=== PATIENT | male | born 1965 | race African-American/Black ===

== ENCOUNTER 2017-01-11 11:42 | Inpatient (IN) | payer OTHER ==
[2017-01-11 13:15] VITALS: BMI 33.6
--- NOTE | 2017-01-11 14:42 | HP ---
CIWA Score - CIWA Score Nausea/Vomitin Muscle Tremors: 3 Anxiety: 3 Agitation: 3 Paroxysmal Sweats: 2 Orientation: 0-Oriented Tacttile Disturbances: 2-Mild Itch/Numbness/Burn Auditory Disturbances: 2-Mild Harshness/Frighten Visual Disturbances: 0-None Headache: 2-Mild CIWA-Ar Total Score: 20 Admission ROS BHS - HPI Chief Complaint: I NEED HELP TO STOP DRINKING ALCOHOL AND COCAINE Allergies/Adverse Reactions: Allergies Allergy/AdvReac Type Severity Reaction Status Date / Time No Known Allergies Allergy Verified 01/11/17 14:21 History of Present Illness: THIS 51 YEARS OLD BLACK MALE WITH ALCOHOL AND COCAINE DEPENDENCE,SEEKING DETOX, LAST TREATMENT 11/23/15 TO 11/28/15 SEIZURE ALCOHOL RELATED LAST 10/18 DIVERTICULITIS LAST ATTACK 6 MOTHS AGO GERD INSOMNIA LONGEST PERIOD OF SOBRIETY 5 YEARS Exam Limitations: No Limitations - Ebola screening Have you traveled outside of the country in the last 21 days: No Have you been sick,other than usual withdrawal symptoms: No - Review of Systems Constitutional: Malaise, Night Sweats, Changes in sleep, Weakness EENT: reports: Nose Congestion Respiratory: reports: No Symptoms reported Cardiac: reports: No Symptoms Reported GI: reports: Nausea, Poor Appetite, Vomiting, Abdominal cramping : reports: No Symptoms Reported Musculoskeletal: reports: Back Pain, Muscle Pain Integumentary: reports: Dryness Neuro: reports: Headache, Tremors Endocrine: reports: No Symptoms Reported Hematology: reports: No Symptoms Reported Psychiatric: reports: No Sypmtoms Reported, Judgement Intact, Mood/Affect Appropiate, Orientated x3 (INSOMNIA) Patient History - Patient Medical History Hx Anemia: No Hx Asthma: No Hx Chronic Obstructive Pulmonary Disease (COPD): No Hx Cancer: No Hx Cardiac Disorders: No Hx Congestive Heart Failure: No Hx Hypertension: No Hx Hypercholesterolemia: No Hx Pacemaker: No HX Cerebrovascular Accident: No Hx Seizures: Yes (etoh related last in 10/18) Hx Dementia: No Hx Diabetes: No Hx Gastrointestinal Disorders: Yes (Hx of diverticulitis. Hx of GERD) Hx Liver Disease: No Hx Genitourinary Disorders: No Hx Sexually Transmitted Disorders: No Hx Renal Disease (ESRD): No Hx Thyroid Disease: No Hx Human Immunodeficiency Virus (HIV): No (LAST 10/18) Hx Hepatitis C: No Hx Depression: Yes Hx Suicide Attempt: No Hx Bipolar Disorder: No Hx Schizophrenia: No Other Medical History: NO SUCIDAL,NO HOMICIDAL,INSOMNIA - Patient Surgical History Past Surgical History: No Hx Neurologic Surgery: No Hx Cataract Extraction: No Hx Cardiac Surgery: No Hx Lung Surgery: No Hx Breast Surgery: No Hx Breast Biopsy: No Hx Abdominal Surgery: No Hx Appendectomy: No Hx Cholecystectomy: No Hx Genitourinary Surgery: No Hx Section: No Hx Orthopedic Surgery: No Anesthesia Reaction: No - PPD History Previous Implant?: Yes Documented Results: Negative w/o proof Implanted On Prior [facility] Admission?: No Date: 11/05/15 Results: 0 mm PPD to be Administered?: Yes - Smoking Cessation Smoking history: Current every day smoker Have you smoked in the past 12 months: Yes Aproximately how many cigarettes per day: 3 Cigars Per Day: 0 Hx Chewing Tobacco Use: No Initiated information on smoking cessation: Yes 'Breaking Loose' booklet given: 01/11/17 - Substance & Tx. History Hx Alcohol Use: Yes Hx Substance Use: Yes Substance Use Type: Alcohol, Cocaine Hx Substance Use Treatment: Yes (LAST [facility] 11/23/15 TO 11/18/15) - Substances Abused Alcohol Route: Oral Frequency: Daily Amount used: FIFTH OF VODKA Age of first use: 15 Date of Last Use: 01/08/17 Cocaine Route: Inhalation Frequency: Daily Amount used: 1 GRAM Age of first use: 18 Date of Last Use: 01/08/17 Family Disease History - Family Disease History Family Disease History: CA: Brother Admission Physical Exam BHS - Vital Signs Vital Signs: Vital Signs - 24 hr 01/11/17 13:13 Temperature 96.9 F L Pulse Rate 84 Respiratory 18 Rate Blood Pressure 116/79 - Physical General Appearance: Yes: Moderate Distress, Tremorous, Irritable, Sweating, Anxious HEENTM: Yes: Normal ENT Inspection, Normocephalic, CHRISTEL, Pharynx Normal Respiratory: Yes: Lungs Clear, Normal Breath Sounds, No Respiratory Distress Neck: Yes: Within Normal Limits, No masses,lesions,Nodules, Supple, Trachea in good position Breast: Yes: Within Normal Limits Cardiology: Yes: Within Normal Limits, Regular Rhythm, S1, S2, Tachycardia Abdominal: Yes: Within Normal Limits, Normal Bowel Sounds, Non Tender, Flat, Soft Genitourinary: Yes: Within Normal Limits Back: Yes: Muscle Spasm Musculoskeletal: Yes: Muscle Pain Extremities: Yes: Within Normal Limits, Normal Range of Motion, Tremors Neurological: Yes: wall man II-XII NML intact, Alert, Motor Strength 5/5, Normal Mood /Affect Integumentary: Yes: Dry Lymphatic: Yes: Within Normal Limits - Diagnostic (1) Alcohol dependence with uncomplicated withdrawal Current Visit: No Status: Chronic (2) Diverticulitis Current Visit: No Status: Acute Qualifiers: Diverticulitis site: large intestine Diverticulitis bleeding: without bleeding Diverticulitis complication: without perforation or abscess Qualified Code(s): K57.32 - Diverticulitis of large intestine without perforation or abscess without bleeding; K57.32 - Diverticulitis of large intestine without perforation or abscess without bleeding Comment: AUGMENTIN BID X 6 DAYS (3) Major depressive disorder Current Visit: No Status: Acute (4) Cocaine dependence Current Visit: No Status: Chronic (5) History of seizures Current Visit: No Status: Chronic Comment: NO TREATMENT (6) Nicotine dependence Current Visit: No Status: Chronic Qualifiers: Nicotine product type: cigarettes Substance use status: uncomplicated Qualified Code(s): F17.210 - Nicotine dependence, cigarettes, uncomplicated; F17.210 - Nicotine dependence, cigarettes, uncomplicated (7) Seizure disorder Current Visit: No Status: Chronic Comment: refuses to take keppra. (8) Insomnia Current Visit: Yes Status: Acute Cleared for Admission [facility] - Detox or Rehab [facility] Level of Care: Medically Managed Detox Regimen/Protocol: Librium [facility] Breath Alcohol Content Breath Alcohol Content: 0 Urine Drug Screen - Results Drug Screen Negative: No Urine Drug Screen Results: MAC-Cocaine, OPI-Opiates
[2017-01-11] MEDS ORDERED: guaiFENesin/D-METHORPHAN HB 10 ML UNIT-DOSE CUPS PO PRN (15:03)
[2017-01-11] MEDS ORDERED: P-EPHED 60MG/TRIPROLIDI 2.5MG TABLET PO PRN (15:03)
[2017-01-11] MEDS ORDERED: chlordiazePOXIDE HCL 25 MG CAPSULE PO PRN (15:03)
[2017-01-11] MEDS ORDERED: MAGNESIUM CITRATE 300 ML BOTTLE PO PRN (15:03)
[2017-01-11] MEDS ORDERED: LOPERAMIDE HCL 2 MG CAPSULE PO PRN (15:03)
[2017-01-11] MEDS ORDERED: ACETAMINOPHEN 325 MG TABLET (FP) PO PRN (15:03)
[2017-01-11] MEDS ORDERED: MENTHOL/PHENOL 1 EACH UD MM PRN (15:03)
[2017-01-11] MEDS ORDERED: hydrOXYzine PAMOATE 50 MG CAPSULE (FP) PO PRN (15:03)
[2017-01-11] MEDS ORDERED: MAGNESIUM HYDROX 2400MG/30ML ORAL SUSPENSION 30 ML CUP PO PRN (15:03)
[2017-01-11] MEDS ORDERED: IBUPROFEN 400 MG TABLET (FP) PO PRN (15:03)
[2017-01-11] MEDS ORDERED: diphenhydrAMINE HCL 50 MG CAPSULE PO PRN (15:03)
[2017-01-11] MEDS ORDERED: chlordiazePOXIDE HCL 25 MG CAPSULE PO ONE (16:45)
[2017-01-11] MEDS: chlordiazePOXIDE HCL 25 MG CAPSULE PO SCH ×2 (18:01→22:30)
[2017-01-11] MEDS ORDERED: COLLOIDAL OATMEAL 1 BAR EACH TP PRN (20:26)
[2017-01-11 22:20] LABS: URINE APPEARANCE CLEAR; URINE BILIRUBIN NEGATIVE (NEGATIVE); URINE BLOOD NEGATIVE (NEGATIVE); URINE COLOR YELLOW; URINE GLUCOSE (UA) NEGATIVE (NEGATIVE); URINE KETONE NEGATIVE (NEGATIVE); URINE NITRITE NEGATIVE (NEGATIVE); URINE PROTEIN NEGATIVE (NEGATIVE); URINE UROBILINOGEN 0.2 mg/dL (0.2-1.0)
[2017-01-11] MEDS: THIAMINE HCL 100 MG TABLET (FP) PO SCH (22:30)
[2017-01-12] MEDS: chlordiazePOXIDE HCL 25 MG CAPSULE PO SCH ×4 (05:24→23:09)
[2017-01-12 09:32] LABS: URINE LEUK ESTERASE Negative (NEGATIVE)
[2017-01-12 10:14] LABS: MCH 26.3 pg (25.7-33.7); MCHC 31.6 g/dl (32.0-35.9); MEAN CELL VOLUME 83.3 fl (80-96); MEAN PLT VOLUME 9.2 fl (7.5-11.1); PLATELET COUNT 312 K/MM3 (134-434); RDW 15.5 % (11.9-15.9); WHITE BLOOD COUNT 8.2 K/mm3 (4.0-10.0)
[2017-01-12 10:41] LABS: ALBUMIN 3.8 g/dl (3.4-5.0); ANION GAP 8 (8-16); CALCIUM 9.6 mg/dL (8.5-10.1); CO2 27 mmol/L (21-32); CREATININE 1.2 mg/dL (0.7-1.3); GLUCOSE,RANDOM 95 mg/dL (74-106); SGOT/AST 20 U/L (15-37); SGPT/ALT 26 U/L (12-78)
[2017-01-12 10:42] LABS: ALK PHOS 155 U/L (45-117); BILIRUBIN,TOTAL 0.5 mg/dL (0.2-1.0)
[2017-01-12] MEDS: PANTOPRAZOLE 40 MG TABLET (FP) PO SCH (10:42)
[2017-01-12] MEDS: PRENATAL VITAMINS W/ FOLIC ACID TABLET (FP) PO SCH (10:42)
--- NOTE | 2017-01-12 10:46 | EKG ---
Test Reason : Blood Pressure : / mmHG Vent. Rate : 069 BPM Atrial Rate : 069 BPM P-R Int : 122 ms QRS Dur : 090 ms QT Int : 384 ms P-R-T Axes : 031 046 032 degrees QTc Int : 411 ms NORMAL SINUS RHYTHM WITH SINUS ARRHYTHMIA NORMAL ECG WHEN COMPARED WITH ECG OF 23-NOV-2015 02:17, NO SIGNIFICANT CHANGE WAS FOUND Confirmed by MARCO A CHARLES, MARIAMA ([id number]) on 01/12/2017 10:45:54 AM Referred By: Ari Recinos Confirmed By:MARIAMA STRICKLAND MD
--- NOTE | 2017-01-12 13:09 | CONSULT ---
[facility] Psychiatric Consult - Data Date of interview: 01/12/17 Admission source: [facility] Identifying data: Readmission to [facility] for this 51 y/o AA male seeking detox treatment on for alcohol and cocaine dependence.Patient is single, a father of four,domiciled,unemployed and supported on [facility] benefits. Substance Abuse History: Confirmed by patient in this session. Smoking Cessation. Smoking history: Current every day smoker. Have you smoked in the past 12 months: Yes. Aproximately how many cigarettes per day: 3. Cigars Per Day: 0. Hx Chewing Tobacco Use: No. Initiated information on smoking cessation : Yes. 'Breaking Loose' booklet given: 01/11/17. - Substance & Tx. History. Hx Alcohol Use: Yes. Hx Substance Use: Yes. Substance Use Type: Alcohol, Cocaine. Hx Substance Use Treatment: Yes (LAST [facility] 11/23/15 TO 11/18/15). - Substances Abused. Alcohol. Route: Oral. Frequency: Daily. Amount used: FIFTH OF VODKA. Age of first use: 15. Date of Last Use: 01/08/17. Cocaine. Route: Inhalation. Frequency: Daily. Amount used: 1 GRAM. Age of first use: 18. Date of Last Use: 01/08/17 Medical History: Consistent with alcohol-related seizures in the past,GERD, diabetes mellitus (borderline) and hospitalization for diverticulitis (2016). Psychiatric History: No reported history of psychiatric hospitalizations.Diagnosed with MDD.Patient is under the care of Dr Montalvo, attending psychiatrist at [facility] in [facility].Prescribed trazodone 100 mg/hs + remeron 15 mg/hs.Mr Cary appears to be a good / reliable historian.Denies history of suicide attempts. Physical/Sexual Abuse/Trauma History: Patient denies. Additional Comment: Urine Drug Screen Results: MAC-Cocaine, OPI-Opiates.Noted. Mental Status Exam - Mental Status Exam Alert and Oriented to: Time, Place, Person Cognitive Function: Good Patient Appearance: Well Groomed Mood: Hopeful, Euthymic Affect: Appropriate, Normal Range Patient Behavior: Appropriate, Cooperative Speech Pattern: Clear Voice Loudness: Normal Thought Process: Intact, Goal Oriented Thought Disorder: Not Present Hallucinations: Denies Suicidal Ideation: Denies Homicidal Ideation: Denies Insight/Judgement: Poor Sleep: Poorly, Difficulty falling asleep Appetite: Good Muscle strength/Tone: Normal Gait/Station: Normal Psychiatric Findings - Problem List ([place] 1, 2,3) (1) Alcohol dependence with uncomplicated withdrawal Current Visit: Yes Status: Acute (2) Cocaine dependence Current Visit: Yes Status: Acute (3) Nicotine dependence Current Visit: Yes Status: Acute Qualifiers: Nicotine product type: cigarettes Substance use status: uncomplicated Qualified Code(s): F17.210 - Nicotine dependence, cigarettes, uncomplicated; F17.210 - Nicotine dependence, cigarettes, uncomplicated (4) Substance induced mood disorder Current Visit: Yes Status: Acute (5) Depressive disorder Current Visit: Yes Status: Chronic (6) GERD (gastroesophageal reflux disease) Current Visit: Yes Status: Chronic Qualifiers: Esophagitis presence: without esophagitis Qualified Code(s): K21.9 - Gastro-esophageal reflux disease without esophagitis; K21.9 - Gastro- esophageal reflux disease without esophagitis; K21.9 - Gastro-esophageal reflux disease without esophagitis (7) Diverticulitis Current Visit: Yes Status: Chronic Qualifiers: Diverticulitis site: large intestine Diverticulitis bleeding: without bleeding Diverticulitis complication: without perforation or abscess Qualified Code(s): K57.32 - Diverticulitis of large intestine without perforation or abscess without bleeding; K57.32 - Diverticulitis of large intestine without perforation or abscess without bleeding Comment: AUGMENTIN BID X 6 DAYS (8) History of seizures Current Visit: Yes Status: Chronic Comment: NO TREATMENT (9) Insomnia Current Visit: Yes Status: Chronic - Initial Treatment Plan Initial Treatment Plan: Psychoeducation.Previous records are reviewed.Detoxification in progress.Medications : trazodone 100 mg po hs + remeron 15 mg po hs.Side effects/benefits discussed with patient.Made aware of potential for priapism.Patient agrees to follow this careplan.Observation.
--- NOTE | 2017-01-12 13:18 | PN ---
S CIWA - CIWA Score Nausea/Vomitin Muscle Tremors: 4-Moderate,w/Arms Extend Anxiety: 3 Agitation: 3 Paroxysmal Sweats: 3 Orientation: 0-Oriented Tacttile Disturbances: 0-None Auditory Disturbances: 1-Very Mild Visual Disturbances: 2-Mild Sensitivity Headache: 0-None Present CIWA-Ar Total Score: 19 BHS Progress Note (SOAP) Subjective: Nausea, Tremors, Interrupted sleep, Sweating. Objective: PT. A & O X 3. NO ACUTE DISTRESS. 01/12/17 13:16 Vital Signs Temperature 95.7 F L 01/12/17 10:10 Pulse Rate 87 01/12/17 10:10 Respiratory Rate 20 01/12/17 10:10 Blood Pressure 125/81 01/12/17 10:10 O2 Sat by Pulse Oximetry (%) Laboratory Tests 01/11/17 01/12/17 01/12/17 19:00 06:00 06:00 WBC 8.2 RBC 5.24 Hgb 13.8 Hct 43.6 MCV 83.3 MCH 26.3 MCHC 31.6 L RDW 15.5 Plt Count 312 MPV 9.2 D Sodium 139 Potassium 4.8 Chloride 104 Carbon Dioxide 27 Anion Gap 8 BUN 13 D Creatinine 1.2 Creat Clearance w eGFR > 60 Random Glucose 95 Calcium 9.6 Total Bilirubin 0.5 D AST 20 D ALT 26 Alkaline Phosphatase 155 H D Total Protein 8.0 Albumin 3.8 Urine Color Yellow Urine Appearance Clear Urine pH 6.0 Ur Specific [place] 1.025 Urine Protein Negative Urine Glucose (UA) Negative Urine Ketones Negative Urine Blood Negative Urine Nitrite Negative Urine Bilirubin Negative Urine Urobilinogen 0.2 Ur Leukocyte Esterase Negative RPR Titer 01/12/17 06:00 WBC RBC Hgb Hct MCV MCH MCHC RDW Plt Count MPV Sodium Potassium Chloride Carbon Dioxide Anion Gap BUN Creatinine Creat Clearance w eGFR Random Glucose Calcium Total Bilirubin AST ALT Alkaline Phosphatase Total Protein Albumin Urine Color Urine Appearance Urine pH Ur Specific [place] Urine Protein Urine Glucose (UA) Urine Ketones Urine Blood Urine Nitrite Urine Bilirubin Urine Urobilinogen Ur Leukocyte Esterase RPR Titer Nonreactive LABS NOTED. Assessment: 01/12/17 13:16 WITHDRAWAL SYMPTOMS. Plan: CONTINUE DETOX. REPEAT AP ON 01/14/2017 FOR ELEVATED ADMISSION VALUE.
[2017-01-12] MEDS: MIRTAZAPINE 15 MG TABLET (FP) PO SCH (21:53)
[2017-01-12] MEDS: THIAMINE HCL 100 MG TABLET (FP) PO SCH (21:53)
[2017-01-12] MEDS: traZODone HCL 100 MG TABLET (FP) PO SCH (21:53)
[2017-01-12] MEDS: MAG HYDROX/AL HYDROX/SIMETH 30 ML UNIT-DOSE CUP PO PRN (21:54)
[2017-01-13] MEDS: chlordiazePOXIDE HCL 25 MG CAPSULE PO SCH ×3 (06:19→11:20)
[2017-01-13] MEDS: PANTOPRAZOLE 40 MG TABLET (FP) PO SCH ×2 (11:07→11:20)
[2017-01-13] MEDS: PRENATAL VITAMINS W/ FOLIC ACID TABLET (FP) PO SCH ×2 (11:07→11:21)
--- NOTE | 2017-01-13 13:10 | PN ---
S CIWA - CIWA Score Nausea/Vomitin-No Nausea/No Vomiting Muscle Tremors: 4-Moderate,w/Arms Extend Anxiety: 3 Agitation: 1-Slight > Activity Paroxysmal Sweats: 3 Orientation: 0-Oriented Tacttile Disturbances: 0-None Auditory Disturbances: 1-Very Mild Visual Disturbances: 3-Moderate Sensitivity Headache: 0-None Present CIWA-Ar Total Score: 15 BHS Progress Note (SOAP) Subjective: Sweating, Tremors, Fatigue. Objective: PT. A & O X 3. NO ACUTE DISTRESS. 01/13/17 13:08 Vital Signs Temperature 96.2 F L 01/13/17 09:54 Pulse Rate 84 01/13/17 09:54 Respiratory Rate 20 01/13/17 09:54 Blood Pressure 114/63 01/13/17 09:54 O2 Sat by Pulse Oximetry (%) Laboratory Tests 01/11/17 01/12/17 01/12/17 19:00 06:00 06:00 WBC 8.2 RBC 5.24 Hgb 13.8 Hct 43.6 MCV 83.3 MCH 26.3 MCHC 31.6 L RDW 15.5 Plt Count 312 MPV 9.2 D Sodium 139 Potassium 4.8 Chloride 104 Carbon Dioxide 27 Anion Gap 8 BUN 13 D Creatinine 1.2 Creat Clearance w eGFR > 60 Random Glucose 95 Calcium 9.6 Total Bilirubin 0.5 D AST 20 D ALT 26 Alkaline Phosphatase 155 H D Total Protein 8.0 Albumin 3.8 Urine Color Yellow Urine Appearance Clear Urine pH 6.0 Ur Specific [place] 1.025 Urine Protein Negative Urine Glucose (UA) Negative Urine Ketones Negative Urine Blood Negative Urine Nitrite Negative Urine Bilirubin Negative Urine Urobilinogen 0.2 Ur Leukocyte Esterase Negative RPR Titer 01/12/17 06:00 WBC RBC Hgb Hct MCV MCH MCHC RDW Plt Count MPV Sodium Potassium Chloride Carbon Dioxide Anion Gap BUN Creatinine Creat Clearance w eGFR Random Glucose Calcium Total Bilirubin AST ALT Alkaline Phosphatase Total Protein Albumin Urine Color Urine Appearance Urine pH Ur Specific [place] Urine Protein Urine Glucose (UA) Urine Ketones Urine Blood Urine Nitrite Urine Bilirubin Urine Urobilinogen Ur Leukocyte Esterase RPR Titer Nonreactive LABS NOTED. Assessment: 01/13/17 13:09 WITHDRAWAL SYMPTOMS. Plan: CONTINUE DETOX.
[2017-01-13] MEDS: chlordiazePOXIDE 5 MG CAPSULE PO SCH ×2 (17:34→22:45)
[2017-01-13] MEDS: MIRTAZAPINE 15 MG TABLET (FP) PO SCH (22:45)
[2017-01-13] MEDS: THIAMINE HCL 100 MG TABLET (FP) PO SCH (22:45)
[2017-01-13] MEDS: traZODone HCL 100 MG TABLET (FP) PO SCH (22:45)
[2017-01-14] MEDS: chlordiazePOXIDE 5 MG CAPSULE PO SCH ×2 (05:34→10:36)
[2017-01-14] MEDS: PRENATAL VITAMINS W/ FOLIC ACID TABLET (FP) PO SCH (10:36)
[2017-01-14] MEDS: PANTOPRAZOLE 40 MG TABLET (FP) PO SCH (10:36)
--- NOTE | 2017-01-14 12:36 | PN ---
BHS Progress Note (SOAP) Subjective: DECREASED ANXIETY,SWEATS. ALERT O X 3. NAD. PT INTERESTED TO GO TO REHAB. Objective: 01/14/17 12:35 Vital Signs Temperature 96.4 F L 01/14/17 10:21 Pulse Rate 95 H 01/14/17 10:21 Respiratory Rate 18 01/14/17 10:21 Blood Pressure 131/75 01/14/17 10:21 O2 Sat by Pulse Oximetry (%) Laboratory Last Values WBC 8.2 K/mm3 (4.0-10.0) 01/12/17 06:00 RBC 5.24 M/mm3 (4.00-5.60) 01/12/17 06:00 Hgb 13.8 GM/dL (11.7-16.9) 01/12/17 06:00 Hct 43.6 % (35.4-49) 01/12/17 06:00 MCV 83.3 fl (80-96) 01/12/17 06:00 MCH 26.3 pg (25.7-33.7) 01/12/17 06:00 MCHC 31.6 g/dl (32.0-35.9) L 01/12/17 06:00 RDW 15.5 % (11.9-15.9) 01/12/17 06:00 Plt Count 312 K/MM3 (134-434) 01/12/17 06:00 MPV 9.2 fl (7.5-11.1) D 01/12/17 06:00 Sodium 139 mmol/L (136-145) 01/12/17 06:00 Potassium 4.8 mmol/L (3.5-5.1) 01/12/17 06:00 Chloride 104 mmol/L (98-107) 01/12/17 06:00 Carbon Dioxide 27 mmol/L (21-32) 01/12/17 06:00 Anion Gap 8 (8-16) 01/12/17 06:00 BUN 13 mg/dL (7-18) D 01/12/17 06:00 Creatinine 1.2 mg/dL (0.7-1.3) 01/12/17 06:00 Creat Clearance w eGFR > 60 (>60) 01/12/17 06:00 Random Glucose 95 mg/dL (74-106) 01/12/17 06:00 Calcium 9.6 mg/dL (8.5-10.1) 01/12/17 06:00 Total Bilirubin 0.5 mg/dL (0.2-1.0) D 01/12/17 06:00 AST 20 U/L (15-37) D 01/12/17 06:00 ALT 26 U/L (12-78) 01/12/17 06:00 Alkaline Phosphatase 141 U/L (45-117) H 01/14/17 07:00 Total Protein 8.0 g/dl (6.4-8.2) 01/12/17 06:00 Albumin 3.8 g/dl (3.4-5.0) 01/12/17 06:00 Urine Color Yellow 01/11/17 19:00 Urine Appearance Clear 01/11/17 19:00 Urine pH 6.0 (5.0-8.0) 01/11/17 19:00 Ur Specific [place] 1.025 (1.005-1.025) 01/11/17 19:00 Urine Protein Negative (NEGATIVE) 01/11/17 19:00 Urine Glucose (UA) Negative (NEGATIVE) 01/11/17 19:00 Urine Ketones Negative (NEGATIVE) 01/11/17 19:00 Urine Blood Negative (NEGATIVE) 01/11/17 19:00 Urine Nitrite Negative (NEGATIVE) 01/11/17 19:00 Urine Bilirubin Negative (NEGATIVE) 01/11/17 19:00 Urine Urobilinogen 0.2 mg/dL (0.2-1.0) 01/11/17 19:00 Ur Leukocyte Esterase Negative (NEGATIVE) 01/11/17 19:00 RPR Titer Nonreactive (NONREACTIVE) 01/12/17 06:00 Assessment: 01/14/17 12:36 NAD Plan: CONTINUE DETOX PT MAY GO TO REHAB TODAY IF BED AVAILABLE.
[2017-01-14] MEDS: chlordiazePOXIDE HCL 10 MG CAPSULE PO SCH ×2 (17:12→22:47)
[2017-01-14] MEDS: traZODone HCL 100 MG TABLET (FP) PO SCH (22:46)
[2017-01-14] MEDS: THIAMINE HCL 100 MG TABLET (FP) PO SCH (22:47)
[2017-01-14] MEDS: MIRTAZAPINE 15 MG TABLET (FP) PO SCH (22:47)
[2017-01-15] MEDS: MAG HYDROX/AL HYDROX/SIMETH 30 ML UNIT-DOSE CUP PO PRN (01:34)
[2017-01-15] MEDS: chlordiazePOXIDE HCL 10 MG CAPSULE PO SCH ×2 (06:21→10:53)
[2017-01-15 07:08] VITALS: BP 145/81; PULSE 82; TEMP 96.1
[2017-01-15] MEDS: PRENATAL VITAMINS W/ FOLIC ACID TABLET (FP) PO SCH (10:53)
[2017-01-15] MEDS: PANTOPRAZOLE 40 MG TABLET (FP) PO SCH (10:53)
--- NOTE | 2017-01-15 15:20 | DS ---
[facility] Detox Discharge Summary Admission Date: 01/11/17 Discharge Date: 01/15/17 - History Present History: Alcohol Dependence, Cocaine Dependence Additional Comments: PATIENT GOING TO [facility] FOR AFTERCARE. PATIENT WAS DISCHARGED FROM DETOX UNIT IN STABLE MEDICAL CONDITION. Pertinent Past History: History of Seizures, Insomnia, Depression, Nicotine Dependence, GERD, Diverticulitis. - Physical Exam Results Vital Signs: Vital Signs Temperature 96.1 F L 01/15/17 07:08 Pulse Rate 82 01/15/17 07:08 Respiratory Rate 18 01/15/17 07:08 Blood Pressure 145/81 01/15/17 07:08 O2 Sat by Pulse Oximetry (%) Pertinent Admission Physical Exam Findings: WITHDRAWAL SYMPTOMS. Laboratory Tests 01/11/17 01/12/17 01/12/17 19:00 06:00 06:00 WBC 8.2 RBC 5.24 Hgb 13.8 Hct 43.6 MCV 83.3 MCH 26.3 MCHC 31.6 L RDW 15.5 Plt Count 312 MPV 9.2 D Sodium 139 Potassium 4.8 Chloride 104 Carbon Dioxide 27 Anion Gap 8 BUN 13 D Creatinine 1.2 Creat Clearance w eGFR > 60 Random Glucose 95 Calcium 9.6 Total Bilirubin 0.5 D AST 20 D ALT 26 Alkaline Phosphatase 155 H D Total Protein 8.0 Albumin 3.8 Urine Color Yellow Urine Appearance Clear Urine pH 6.0 Ur Specific [place] 1.025 Urine Protein Negative Urine Glucose (UA) Negative Urine Ketones Negative Urine Blood Negative Urine Nitrite Negative Urine Bilirubin Negative Urine Urobilinogen 0.2 Ur Leukocyte Esterase Negative RPR Titer 01/12/17 01/14/17 06:00 07:00 WBC RBC Hgb Hct MCV MCH MCHC RDW Plt Count MPV Sodium Potassium Chloride Carbon Dioxide Anion Gap BUN Creatinine Creat Clearance w eGFR Random Glucose Calcium Total Bilirubin AST ALT Alkaline Phosphatase 141 H Total Protein Albumin Urine Color Urine Appearance Urine pH Ur Specific [place] Urine Protein Urine Glucose (UA) Urine Ketones Urine Blood Urine Nitrite Urine Bilirubin Urine Urobilinogen Ur Leukocyte Esterase RPR Titer Nonreactive LABS NOTED. - Treatment Hospital Course: Detox Protocol Followed, Detoxed Safely, Responded well, Discharged Condition Good, Rehab Referral Accepted Patient has Accepted a Rehab Referral to: [facility]. - Medication Discharge Medications: Ambulatory Orders Lansoprazole [Prevacid -] 30 mg PO DAILY #30 cap.sr.24h 12/04/15 Trazodone HCl [Desyrel -] 100 mg PO HS #30 tablet 08/03/16 Mirtazapine [Remeron -] 15 mg PO HS #30 tablet 01/12/17 Trazodone HCl 100 mg PO HS #30 tablet 01/12/17 Mirtazapine [Remeron -] 15 mg PO HS 01/15/17 - Diagnosis (1) Alcohol dependence with uncomplicated withdrawal Status: Acute (2) Cocaine dependence Status: Acute (3) Major depressive disorder Status: Chronic Qualifiers: Major depression recurrence: recurrent Active/Remission status: remission status unspecified Qualified Code(s): F33.9 - Major depressive disorder, recurrent, unspecified; F33.9 - Major depressive disorder, recurrent, unspecified; F33.9 - Major depressive disorder, recurrent, unspecified; F33.9 - Major depressive disorder, recurrent, unspecified (4) Nicotine dependence Status: Chronic Qualifiers: Nicotine product type: cigarettes Substance use status: in withdrawal Qualified Code(s): F17.213 - Nicotine dependence, cigarettes, with withdrawal; F17.213 - Nicotine dependence, cigarettes, with withdrawal (5) Substance induced mood disorder Status: Acute (6) Depressive disorder Status: Chronic (7) Diverticulitis Status: Chronic Qualifiers: Diverticulitis site: large intestine Diverticulitis bleeding: without bleeding Diverticulitis complication: without perforation or abscess Qualified Code(s): K57.32 - Diverticulitis of large intestine without perforation or abscess without bleeding; K57.32 - Diverticulitis of large intestine without perforation or abscess without bleeding (8) GERD (gastroesophageal reflux disease) Status: Chronic Qualifiers: Esophagitis presence: without esophagitis Qualified Code(s): K21.9 - Gastro-esophageal reflux disease without esophagitis; K21.9 - Gastro- esophageal reflux disease without esophagitis; K21.9 - Gastro-esophageal reflux disease without esophagitis (9) History of seizures Status: Chronic (10) Insomnia Status: Chronic Qualifiers: Insomnia type: unspecified Qualified Code(s): G47.00 - Insomnia, unspecified; G47.00 - Insomnia, unspecified (11) Seizure disorder Status: Chronic - AMA Did Patient Leave Against Medical Advice: No
== END 2017-01-15 11:05 | disposition other institution (70) | DRG 774 ==
LOC: YASAS 11:42 → Y3N 16:23
PROVIDERS: ADMIT Internal Medicine; ATTEND Internal Medicine
PROC: HZ2ZZZZ Detoxification Services for Substance Abuse Treatment (ICD-10-PCS; principal; 2017-01-11)
DX: F10.230 Alcohol dependence with withdrawal, uncomplicated (principal); F14.20 Cocaine dependence, uncomplicated; F17.213 Nicotine dependence, cigarettes, with withdrawal; F33.9 Major depressive disorder, recurrent, unspecified; F19.24 Other psychoactive substance dependence with psychoactive substance-induced mood disorder; R00.0 Tachycardia, unspecified; R73.03 Prediabetes; K21.9 Gastro-esophageal reflux disease without esophagitis; K57.32 Diverticulitis of large intestine without perforation or abscess without bleeding; G47.00 Insomnia, unspecified; Z86.69 Personal history of other diseases of the nervous system and sense organs
CPT/HCPCS: 36415; 80053; 81003; 84075; 85027; 86593; 93005; 93010

== ENCOUNTER 2017-01-15 11:14 | Inpatient (IN) | payer OTHER ==
--- NOTE | 2017-01-15 11:44 | HP ---
[facility] Rehab Assess/Revision - Admission History Admitted to Rehab from: [facility] Date of Admission to Rehab: 01/15/2017 - Vital signs Vital Signs: NOTED; STABLE. - Findings Detox History & Physical reviewed: Yes Concur with findings: Yes Comments/Additional Findings: PATIENT'S MEDICAL / MEDICATION HISTORY REVIEWED PRIOR TO DISCAHRGE FROM DETOX UNIT. PATIENT WAS DISCHARGED FROM DETOX UNIT IN STABLE MEDICAL CONDITION TO BE TAKEN TO REHAB UNIT. Inpatient Rehab Admission - Initial Determination Are CD services needed?: Yes Free of communicable disease: Yes Not in need of hospitalization: Yes - Rehab Admission Criteria Previous failed treatment: Yes Comorbidities: Yes Patient is meeting Inpatient Rehab admission criteria:: Yes
[2017-01-15] MEDS ORDERED: LOPERAMIDE HCL 2 MG CAPSULE PO PRN (11:50)
[2017-01-15] MEDS ORDERED: guaiFENesin/D-METHORPHAN HB 10 ML UNIT-DOSE CUPS PO PRN (11:50)
[2017-01-15] MEDS ORDERED: MAGNESIUM CITRATE 300 ML BOTTLE PO PRN (11:50)
[2017-01-15] MEDS ORDERED: MAGNESIUM HYDROX 2400MG/30ML ORAL SUSPENSION 30 ML CUP PO PRN (11:50)
[2017-01-15] MEDS ORDERED: IBUPROFEN 400 MG TABLET (FP) PO PRN (11:50)
[2017-01-15] MEDS ORDERED: diphenhydrAMINE HCL 50 MG CAPSULE PO PRN (11:50)
[2017-01-15] MEDS ORDERED: hydrOXYzine PAMOATE 50 MG CAPSULE (FP) PO PRN (11:50)
[2017-01-15] MEDS ORDERED: ACETAMINOPHEN 325 MG TABLET (FP) PO PRN (11:50)
[2017-01-15] MEDS ORDERED: MAG HYDROX/AL HYDROX/SIMETH 30 ML UNIT-DOSE CUP PO PRN (11:50)
[2017-01-15] MEDS ORDERED: P-EPHED 60MG/TRIPROLIDI 2.5MG TABLET PO PRN (11:50)
[2017-01-15] MEDS ORDERED: MENTHOL/PHENOL 1 EACH UD MM PRN (11:50)
[2017-01-15] MEDS ORDERED: NICOTINE POLACRILEX 2 MG GUM BUC PRN (11:50)
[2017-01-15 13:29] VITALS: BMI 31.8
--- NOTE | 2017-01-15 18:35 | PN ---
[facility] Progress Note Note: Psychiatry Attending's neon glass blower note : Orders entered for trazodone 100 mg po hs + remeron 15 mg po hs. Mr Cary is already known to me from the detox unit. Transferred today to [address] [place] [address]
[2017-01-15] MEDS: THIAMINE HCL 100 MG TABLET (FP) PO SCH (22:02)
[2017-01-15] MEDS: traZODone HCL 50 MG TABLET (FP) PO SCH (22:03)
[2017-01-15] MEDS: MIRTAZAPINE 15 MG TABLET (FP) PO SCH (22:03)
[2017-01-16] MEDS: NICOTINE 14 MG/24 HOURS TOPICAL PATCH TD SCH (10:12)
[2017-01-16] MEDS: PANTOPRAZOLE 40 MG TABLET (FP) PO SCH (10:12)
[2017-01-16] MEDS: PRENATAL VITAMINS W/ FOLIC ACID TABLET (FP) PO SCH (10:12)
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
[2017-01-16] MEDS: THIAMINE HCL 100 MG TABLET (FP) PO SCH (21:25)
[2017-01-16] MEDS: traZODone HCL 50 MG TABLET (FP) PO SCH (21:25)
[2017-01-16] MEDS: MIRTAZAPINE 15 MG TABLET (FP) PO SCH (21:25)
[2017-01-17] MEDS: PANTOPRAZOLE 40 MG TABLET (FP) PO SCH (09:52)
[2017-01-17] MEDS: NICOTINE 14 MG/24 HOURS TOPICAL PATCH TD SCH (09:52)
[2017-01-17] MEDS: PRENATAL VITAMINS W/ FOLIC ACID TABLET (FP) PO SCH (09:52)
[2017-01-17] MEDS: TOLNAFTATE 1% CREAM 15 GM TUBE TP SCH ×2 (15:20→21:17)
[2017-01-17] MEDS: traZODone HCL 50 MG TABLET (FP) PO SCH (21:17)
[2017-01-17] MEDS: THIAMINE HCL 100 MG TABLET (FP) PO SCH (21:17)
[2017-01-17] MEDS: MIRTAZAPINE 15 MG TABLET (FP) PO SCH (21:18)
[2017-01-18] MEDS: PRENATAL VITAMINS W/ FOLIC ACID TABLET (FP) PO SCH (10:18)
[2017-01-18] MEDS: PANTOPRAZOLE 40 MG TABLET (FP) PO SCH (10:18)
[2017-01-18] MEDS: NICOTINE 14 MG/24 HOURS TOPICAL PATCH TD SCH (10:18)
[2017-01-18] MEDS: COLLOIDAL OATMEAL 1 BAR EACH TP PRN (10:19)
[2017-01-18] MEDS: TOLNAFTATE 1% CREAM 15 GM TUBE TP SCH ×2 (10:19→23:02)
[2017-01-18] MEDS: traZODone HCL 50 MG TABLET (FP) PO SCH (21:27)
[2017-01-18] MEDS: MIRTAZAPINE 15 MG TABLET (FP) PO SCH (21:27)
[2017-01-18] MEDS: THIAMINE HCL 100 MG TABLET (FP) PO SCH (21:27)
[2017-01-19] MEDS: PANTOPRAZOLE 40 MG TABLET (FP) PO SCH (10:34)
[2017-01-19] MEDS: PRENATAL VITAMINS W/ FOLIC ACID TABLET (FP) PO SCH (10:34)
[2017-01-19] MEDS: NICOTINE 14 MG/24 HOURS TOPICAL PATCH TD SCH (10:34)
[2017-01-19] MEDS: TOLNAFTATE 1% CREAM 15 GM TUBE TP SCH ×2 (10:35→21:23)
[2017-01-19] MEDS: traZODone HCL 50 MG TABLET (FP) PO SCH (21:22)
[2017-01-19] MEDS: THIAMINE HCL 100 MG TABLET (FP) PO SCH (21:22)
[2017-01-19] MEDS: MIRTAZAPINE 15 MG TABLET (FP) PO SCH (21:23)
[2017-01-20] MEDS: PANTOPRAZOLE 40 MG TABLET (FP) PO SCH (10:13)
[2017-01-20] MEDS: NICOTINE 14 MG/24 HOURS TOPICAL PATCH TD SCH (10:13)
[2017-01-20] MEDS: PRENATAL VITAMINS W/ FOLIC ACID TABLET (FP) PO SCH (10:13)
[2017-01-20] MEDS: TOLNAFTATE 1% CREAM 15 GM TUBE TP SCH ×2 (10:13→21:29)
[2017-01-20] MEDS: COLLOIDAL OATMEAL 1 BAR EACH TP PRN (10:15)
[2017-01-20] MEDS: traZODone HCL 50 MG TABLET (FP) PO SCH (21:28)
[2017-01-20] MEDS: MIRTAZAPINE 15 MG TABLET (FP) PO SCH (21:29)
[2017-01-20] MEDS: THIAMINE HCL 100 MG TABLET (FP) PO SCH (21:29)
[2017-01-21] MEDS: PRENATAL VITAMINS W/ FOLIC ACID TABLET (FP) PO SCH (10:33)
[2017-01-21] MEDS: PANTOPRAZOLE 40 MG TABLET (FP) PO SCH (10:33)
[2017-01-21] MEDS: NICOTINE 14 MG/24 HOURS TOPICAL PATCH TD SCH (10:34)
[2017-01-21] MEDS: TOLNAFTATE 1% CREAM 15 GM TUBE TP SCH ×2 (10:34→21:16)
[2017-01-21] MEDS: MIRTAZAPINE 15 MG TABLET (FP) PO SCH (21:16)
[2017-01-21] MEDS: traZODone HCL 50 MG TABLET (FP) PO SCH (21:16)
[2017-01-21] MEDS: THIAMINE HCL 100 MG TABLET (FP) PO SCH (21:16)
[2017-01-22] MEDS: PANTOPRAZOLE 40 MG TABLET (FP) PO SCH (10:01)
[2017-01-22] MEDS: TOLNAFTATE 1% CREAM 15 GM TUBE TP SCH ×2 (10:01→22:14)
[2017-01-22] MEDS: PRENATAL VITAMINS W/ FOLIC ACID TABLET (FP) PO SCH (10:01)
[2017-01-22] MEDS: NICOTINE 14 MG/24 HOURS TOPICAL PATCH TD SCH (10:01)
[2017-01-22] MEDS: THIAMINE HCL 100 MG TABLET (FP) PO SCH (22:14)
[2017-01-22] MEDS: MIRTAZAPINE 15 MG TABLET (FP) PO SCH (22:14)
[2017-01-22] MEDS: traZODone HCL 50 MG TABLET (FP) PO SCH (22:14)
[2017-01-23] MEDS: PRENATAL VITAMINS W/ FOLIC ACID TABLET (FP) PO SCH (09:55)
[2017-01-23] MEDS: NICOTINE 14 MG/24 HOURS TOPICAL PATCH TD SCH (09:55)
[2017-01-23] MEDS: PANTOPRAZOLE 40 MG TABLET (FP) PO SCH (09:55)
[2017-01-23] MEDS: TOLNAFTATE 1% CREAM 15 GM TUBE TP SCH ×2 (09:55→22:10)
[2017-01-23] MEDS: traZODone HCL 50 MG TABLET (FP) PO SCH (22:09)
[2017-01-23] MEDS: MIRTAZAPINE 15 MG TABLET (FP) PO SCH (22:09)
[2017-01-23] MEDS: THIAMINE HCL 100 MG TABLET (FP) PO SCH (22:10)
[2017-01-24] MEDS: PANTOPRAZOLE 40 MG TABLET (FP) PO SCH (10:25)
[2017-01-24] MEDS: PRENATAL VITAMINS W/ FOLIC ACID TABLET (FP) PO SCH (10:25)
[2017-01-24] MEDS: NICOTINE 14 MG/24 HOURS TOPICAL PATCH TD SCH (10:26)
[2017-01-24] MEDS: TOLNAFTATE 1% CREAM 15 GM TUBE TP SCH ×2 (10:26→21:40)
[2017-01-24] MEDS: COLLOIDAL OATMEAL 1 BAR EACH TP PRN (10:27)
[2017-01-24] MEDS: THIAMINE HCL 100 MG TABLET (FP) PO SCH (21:39)
[2017-01-24] MEDS: traZODone HCL 50 MG TABLET (FP) PO SCH (21:39)
[2017-01-24] MEDS: MIRTAZAPINE 15 MG TABLET (FP) PO SCH (21:40)
[2017-01-25] MEDS: PRENATAL VITAMINS W/ FOLIC ACID TABLET (FP) PO SCH (10:37)
[2017-01-25] MEDS: TOLNAFTATE 1% CREAM 15 GM TUBE TP SCH ×2 (10:37→21:21)
[2017-01-25] MEDS: NICOTINE 14 MG/24 HOURS TOPICAL PATCH TD SCH (10:37)
[2017-01-25] MEDS: PANTOPRAZOLE 40 MG TABLET (FP) PO SCH (10:37)
[2017-01-25] MEDS: THIAMINE HCL 100 MG TABLET (FP) PO SCH (21:20)
[2017-01-25] MEDS: MIRTAZAPINE 15 MG TABLET (FP) PO SCH (21:20)
[2017-01-25] MEDS: traZODone HCL 50 MG TABLET (FP) PO SCH (21:20)
[2017-01-26] MEDS: PRENATAL VITAMINS W/ FOLIC ACID TABLET (FP) PO SCH (10:28)
[2017-01-26] MEDS: NICOTINE 14 MG/24 HOURS TOPICAL PATCH TD SCH (10:28)
[2017-01-26] MEDS: PANTOPRAZOLE 40 MG TABLET (FP) PO SCH (10:28)
[2017-01-26] MEDS: TOLNAFTATE 1% CREAM 15 GM TUBE TP SCH ×2 (10:29→21:26)
[2017-01-26] MEDS: THIAMINE HCL 100 MG TABLET (FP) PO SCH (21:25)
[2017-01-26] MEDS: traZODone HCL 50 MG TABLET (FP) PO SCH (21:25)
[2017-01-26] MEDS: MIRTAZAPINE 15 MG TABLET (FP) PO SCH (21:26)
[2017-01-27] MEDS: NICOTINE 14 MG/24 HOURS TOPICAL PATCH TD SCH (10:22)
[2017-01-27] MEDS: PRENATAL VITAMINS W/ FOLIC ACID TABLET (FP) PO SCH (10:22)
[2017-01-27] MEDS: PANTOPRAZOLE 40 MG TABLET (FP) PO SCH (10:22)
[2017-01-27] MEDS: TOLNAFTATE 1% CREAM 15 GM TUBE TP SCH ×2 (10:22→21:57)
[2017-01-27] MEDS: COLLOIDAL OATMEAL 1 BAR EACH TP PRN (10:24)
--- NOTE | 2017-01-27 10:59 | PN ---
Psychiatric Progress Note Vital Signs: Vital Signs Period Temp Pulse Resp BP Sys/Yañez Pulse Ox Last 24 Hr 98 F 59 18-18 115/51 Date of Session: 01/27/17 Chief Complaint:: Discharge Note Current Medications: Active Medications Generic Name Dose Route Start Last Admin Trade Name Freq PRN Reason Stop Dose Admin Acetaminophen 650 mg 01/15/17 11:50 Tylenol - PO Q4H PRN FEVER OR PAIN Al Hydroxide/Mg Hydroxide 30 ml 01/15/17 11:50 01/19/17 01:26 Mylanta Oral Suspension - PO 30 ml Q6H PRN Administration DYSPEPSIA Colloidal Oatmeal 1 applic 01/15/17 11:52 01/27/17 10:24 Aveeno Soap - TP 1 applic DAILY PRN Administration HYGEINE Diphenhydramine HCl 50 mg 01/15/17 11:50 Benadryl - PO HSMR1 PRN FOR ITCHING Eucalyptus/Menthol/Phenol/Sorbitol 1 each 01/15/17 11:50 Cepastat Lozenge - MM Q4H PRN SORE THROAT Guaifenesin 10 ml 01/15/17 11:50 Robitussin Dm - PO Q6H PRN COUGH Hydroxyzine Pamoate 50 mg 01/15/17 11:50 Vistaril - PO Q4H PRN AGITATION Ibuprofen 400 mg 01/15/17 11:50 Motrin - PO Q6H PRN PAIN Loperamide HCl 4 mg 01/15/17 11:50 Imodium - PO Q6H PRN DIARRHEA Magnesium Hydroxide 30 ml 01/15/17 11:50 Milk Of Magnesia - PO DAILY PRN CONSTIPATION Mirtazapine 15 mg 01/15/17 22:00 01/26/17 21:26 Remeron - PO 15 mg HS TRUONG Administration Nicotine 14 mg 01/16/17 10:00 01/27/17 10:22 Nicoderm Patch - TD Not Given DAILY TRUONG Nicotine Polacrilex 2 mg 01/15/17 11:50 Nicorette Gum - BUC Q2H PRN NICOTINE REPLACEMENT RX Pantoprazole Sodium 40 mg 01/16/17 10:00 01/27/17 10:22 Protonix - PO 40 mg DAILY TRUONG Administration Multivit/Folic Acid/Iron 1 tab 01/16/17 10:00 01/27/17 10:22 Vitamins (Sjr) - PO 1 tab DAILY TRUONG Administration Pseudoephedrine/Triprolidine 1 combo 01/15/17 11:50 Actifed - PO TID PRN NASAL CONGESTION Thiamine HCl 100 mg 01/15/17 22:00 01/26/17 21:25 Vitamin B1 - PO 100 mg HS TRUONG Administration Tolnaftate 1 applic 01/17/17 14:05 01/27/17 10:22 Tinactin 1% Cream - TP Not Given BID TRUONG Trazodone HCl 100 mg 01/15/17 22:00 01/26/17 21:25 Desyrel - PO 100 mg HS TRUONG Administration Psychiatric Treatment Plan - Problem List (1) Alcohol dependence Current Visit: No (2) Cocaine dependence Current Visit: No (3) Nicotine dependence Current Visit: No Qualifiers: Nicotine product type: cigarettes Substance use status: in withdrawal Qualified Code(s): F17.213 - Nicotine dependence, cigarettes, with withdrawal; F17.213 - Nicotine dependence, cigarettes, with withdrawal (4) PTSD (post-traumatic stress disorder) Current Visit: Yes (5) Substance-induced sleep disorder Current Visit: Yes (6) Diverticulosis of colon Current Visit: No Qualifiers: Diverticulosis bleeding: diverticulosis without bleeding Qualified Code(s): K57.30 - Diverticulosis of large intestine without perforation or abscess without bleeding; K57.30 - Diverticulosis of large intestine without perforation or abscess without bleeding Comment: FOLLOW UP WITH DOCTOR PEGGY IN TWO WEEKS (7) History of seizures Current Visit: No Comment: NO TREATMENT (8) Seizure disorder Current Visit: No Comment: refuses to take keppra.
--- NOTE | 2017-01-27 11:11 | PN ---
Psychiatric Progress Note Vital Signs: Vital Signs Period Temp Pulse Resp BP Sys/Yañez Pulse Ox Last 24 Hr 98 F 59 18-18 115/51 Date of Session: 01/27/17 Chief Complaint:: Discharge Note HPI: Patient addressing Alcohol and Cocaine Dependence comorbid with Nicotine Dependence, Postraumatic Stress Disorder and Substance-Induced Sleep Disorder Current Medications: Active Medications Generic Name Dose Route Start Last Admin Trade Name Freq PRN Reason Stop Dose Admin Acetaminophen 650 mg 01/15/17 11:50 Tylenol - PO Q4H PRN FEVER OR PAIN Al Hydroxide/Mg Hydroxide 30 ml 01/15/17 11:50 01/19/17 01:26 Mylanta Oral Suspension - PO 30 ml Q6H PRN Administration DYSPEPSIA Colloidal Oatmeal 1 applic 01/15/17 11:52 01/27/17 10:24 Aveeno Soap - TP 1 applic DAILY PRN Administration HYGEINE Diphenhydramine HCl 50 mg 01/15/17 11:50 Benadryl - PO HSMR1 PRN FOR ITCHING Eucalyptus/Menthol/Phenol/Sorbitol 1 each 01/15/17 11:50 Cepastat Lozenge - MM Q4H PRN SORE THROAT Guaifenesin 10 ml 01/15/17 11:50 Robitussin Dm - PO Q6H PRN COUGH Hydroxyzine Pamoate 50 mg 01/15/17 11:50 Vistaril - PO Q4H PRN AGITATION Ibuprofen 400 mg 01/15/17 11:50 Motrin - PO Q6H PRN PAIN Loperamide HCl 4 mg 01/15/17 11:50 Imodium - PO Q6H PRN DIARRHEA Magnesium Hydroxide 30 ml 01/15/17 11:50 Milk Of Magnesia - PO DAILY PRN CONSTIPATION Mirtazapine 15 mg 01/15/17 22:00 01/26/17 21:26 Remeron - PO 15 mg HS TRUONG Administration Nicotine 14 mg 01/16/17 10:00 01/27/17 10:22 Nicoderm Patch - TD Not Given DAILY TRUONG Nicotine Polacrilex 2 mg 01/15/17 11:50 Nicorette Gum - BUC Q2H PRN NICOTINE REPLACEMENT RX Pantoprazole Sodium 40 mg 01/16/17 10:00 01/27/17 10:22 Protonix - PO 40 mg DAILY TRUONG Administration Multivit/Folic Acid/Iron 1 tab 01/16/17 10:00 01/27/17 10:22 Vitamins (Sjr) - PO 1 tab DAILY TRUONG Administration Pseudoephedrine/Triprolidine 1 combo 01/15/17 11:50 Actifed - PO TID PRN NASAL CONGESTION Thiamine HCl 100 mg 01/15/17 22:00 01/26/17 21:25 Vitamin B1 - PO 100 mg HS TRUONG Administration Tolnaftate 1 applic 01/17/17 14:05 01/27/17 10:22 Tinactin 1% Cream - TP Not Given BID TRUONG Trazodone HCl 100 mg 01/15/17 22:00 01/26/17 21:25 Desyrel - PO 100 mg HS TRUONG Administration Current Side Effect: No Lab tests ordered: Yes Lab tests reviewed: Yes Provider note:: Patient will complete this program on 01/28/17. He has met his treatment goals and will continue to address his issues in outpatient treatment at [facility]. 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 He responded well to Trazadone 100 mg po HS for insomnia. Scripts for 30 days supply of medication will be electronically transmitted to [facility] at [address] [place] [address]. He is stable for discharge on 01/28/17 Total face to face time:: 35 Mental Status Exam - Mental Status Exam Alert and Oriented to: Time, Place, Person Cognitive Function: Fair Patient Appearance: Well Groomed Mood: Hopeful, Euthymic Affect: Appropriate Patient Behavior: Cooperative Speech Pattern: Clear Voice Loudness: Normal Thought Process: Intact, Goal Oriented Thought Disorder: Not Present Hallucinations: Denies Suicidal Ideation: Denies Homicidal Ideation: Denies Insight/Judgement: Fair Sleep: Fair Appetite: Good Muscle strength/Tone: Normal Gait/Station: Normal Psychiatric Treatment Plan - Problem List (1) Alcohol dependence Current Visit: No (2) Cocaine dependence Current Visit: No (3) Nicotine dependence Current Visit: No Qualifiers: Nicotine product type: cigarettes Substance use status: in withdrawal Qualified Code(s): F17.213 - Nicotine dependence, cigarettes, with withdrawal; F17.213 - Nicotine dependence, cigarettes, with withdrawal (4) PTSD (post-traumatic stress disorder) Current Visit: Yes (5) Substance-induced sleep disorder Current Visit: Yes (6) Diverticulosis of colon Current Visit: No Qualifiers: Diverticulosis bleeding: diverticulosis without bleeding Qualified Code(s): K57.30 - Diverticulosis of large intestine without perforation or abscess without bleeding; K57.30 - Diverticulosis of large intestine without perforation or abscess without bleeding Comment: FOLLOW UP WITH DOCTOR PEGGY IN TWO WEEKS (7) History of seizures Current Visit: No Comment: NO TREATMENT (8) Seizure disorder Current Visit: No Comment: refuses to take keppra. Initial treatment plan: Patient will be discharged tomorrow and referred to [facility] for outpatient treatment
[2017-01-27] MEDS: MIRTAZAPINE 15 MG TABLET (FP) PO SCH (21:56)
[2017-01-27] MEDS: traZODone HCL 50 MG TABLET (FP) PO SCH (21:56)
[2017-01-27] MEDS: THIAMINE HCL 100 MG TABLET (FP) PO SCH (21:57)
[2017-01-28 07:21] VITALS: BP 133/76; PULSE 65; TEMP 97.6
[2017-01-28] MEDS: TOLNAFTATE 1% CREAM 15 GM TUBE TP SCH (09:11)
[2017-01-28] MEDS: NICOTINE 14 MG/24 HOURS TOPICAL PATCH TD SCH (09:11)
[2017-01-28] MEDS: PRENATAL VITAMINS W/ FOLIC ACID TABLET (FP) PO SCH (09:11)
[2017-01-28] MEDS: PANTOPRAZOLE 40 MG TABLET (FP) PO SCH (09:11)
== END 2017-01-28 09:10 | disposition home or self-care (01) | DRG 772 ==
LOC: YASAS 11:14 → Y3W 12:53
PROVIDERS: ADMIT Psychiatry & Neurology Psychiatry; ATTEND Psychiatry & Neurology Psychiatry
PROC: HZ42ZZZ Group Counseling for Substance Abuse Treatment, Cognitive-Behavioral (ICD-10-PCS; principal; 2017-01-15)
DX: F10.20 Alcohol dependence, uncomplicated (principal); F14.20 Cocaine dependence, uncomplicated; F17.213 Nicotine dependence, cigarettes, with withdrawal; F43.10 Post-traumatic stress disorder, unspecified; F19.282 Other psychoactive substance dependence with psychoactive substance-induced sleep disorder; K57.30 Diverticulosis of large intestine without perforation or abscess without bleeding; Z86.69 Personal history of other diseases of the nervous system and sense organs

== ENCOUNTER 2017-03-22 17:54 | Inpatient (IN) | payer OTHER ==
[2017-03-22 20:37] VITALS: BMI 30.4
--- NOTE | 2017-03-22 21:12 | HP ---
COWS - Scale Resting Pulse: 1= CT 81-100 Sweatin=Flushed/Facial Moisture Restless Observation: 1= Difficult to Sit Still Pupil Size: 1= Pupils >than Normal Bone or Joint Aches: 4=Acute Joint/Muscle Pain Runny Nose/ Eye Tearin= Runny Nose/Eyes GI Upset > 30mins: 2= Nausea/Diarrhea Tremor Observation: 2= Slight Tremor Visible Yawning Observation: 0= None Anxiety or Irritability: 4=Extreme Anxiety Goose Flesh Skin: 0=Smooth Skin COWS Score: 19 CIWA Score - CIWA Score Nausea/Vomitin Muscle Tremors: 4-Moderate,w/Arms Extend Anxiety: 5 Agitation: 1-Slight > Activity Paroxysmal Sweats: 3 Orientation: 0-Oriented Tacttile Disturbances: 0-None Auditory Disturbances: 0-None Visual Disturbances: 0-None Headache: 0-None Present CIWA-Ar Total Score: 16 Admission [facility] - HPI Chief Complaint: Alcohol, marijuana and cocaine dependence Allergies/Adverse Reactions: Allergies Allergy/AdvReac Type Severity Reaction Status Date / Time tomato Allergy Mild Verified 03/22/17 22:36 No Known Drug Allergies Allergy Verified 03/22/17 22:37 red meat Allergy Mild Uncoded 03/22/17 22:36 History of Present Illness: 51 years old male with a long history of alcohol,marijuana and cocaine dependence is admitted to detox. Patient has been in previous detox and reports 5 years of sobriety. He has medical history of seizure disorder, diverticulitis , GERD, anxiety, insomnia, depression and was recently diagnosed with colon cancer. He denies suicidal ideation at this time. Exam Limitations: No Limitations - Ebola screening Have you traveled outside of the country in the last 21 days: No (N) Have you had contact with anyone from an Ebola affected area: No Have you been sick,other than usual withdrawal symptoms: No Do you have a fever: No - Review of Systems Constitutional: Loss of Appetite, Malaise, Night Sweats, Changes in sleep, Weakness EENT: reports: Nose Congestion, Sinus Pressure, Other (use readin glasses) Respiratory: reports: Productive cough (whitish phlegm) Cardiac: reports: No Symptoms Reported GI: reports: Poor Appetite, Poor Fluid Intake, Abdominal cramping : reports: No Symptoms Reported, Testicular Pain (h/o diverticulitis) Musculoskeletal: reports: Back Pain, Joint Pain, Muscle Pain, Muscle Weakness Integumentary: reports: Dryness, Flushing, Other (tatoo to right neck) Neuro: reports: Headache, Seizure, Tingling, Tremors Endocrine: reports: Flushing Hematology: reports: No Symptoms Reported Psychiatric: reports: Mood/Affect Appropiate, Orientated x3, Anxious, Depressed Other Systems: Reviewed and Negative Patient History - Patient Medical History Hx Anemia: No Hx Asthma: No Hx Chronic Obstructive Pulmonary Disease (COPD): No Hx Cancer: Yes (recently diagnosed with colon cancer) Hx Cardiac Disorders: No Hx Congestive Heart Failure: No Hx Hypertension: No Hx Hypercholesterolemia: No Hx Pacemaker: No HX Cerebrovascular Accident: No Hx Seizures: Yes (Seizure r/t alcohol 10/2016) Hx Dementia: No Hx Diabetes: No Hx Gastrointestinal Disorders: Yes (Diverticulitis/GERD) Hx Liver Disease: No Hx Genitourinary Disorders: No Hx Sexually Transmitted Disorders: No Hx Renal Disease (ESRD): No Hx Thyroid Disease: No Hx Human Immunodeficiency Virus (HIV): No (Negative 10/2016) Hx Hepatitis C: No (Negative 07/2016) Hx Depression: Yes Hx Suicide Attempt: No (Denies suicidal ideation) Hx Bipolar Disorder: No Hx Schizophrenia: No - Patient Surgical History Past Surgical History: No Hx Neurologic Surgery: No Hx Cataract Extraction: No Hx Cardiac Surgery: No Hx Lung Surgery: No Hx Abdominal Surgery: No Hx Appendectomy: No Hx Cholecystectomy: No Hx Genitourinary Surgery: No Hx Orthopedic Surgery: No Anesthesia Reaction: No - PPD History Previous Implant?: Yes ([facility]) Documented Results: Negative w/o proof Implanted On Prior [facility] Admission?: Yes Date: 01/13/17 Results: 0 mm PPD to be Administered?: No - Reproductive History Patient is a Female of Child Bearing Age (11 -55 yrs old): No (Male) - Smoking Cessation Smoking history: Current every day smoker Have you smoked in the past 12 months: Yes Aproximately how many cigarettes per day: 3 Cigars Per Day: 0 Hx Chewing Tobacco Use: No Initiated information on smoking cessation: Yes 'Breaking Loose' booklet given: 03/22/17 - Substance & Tx. History Hx Alcohol Use: Yes (Margy) Hx Substance Use: Yes (Marjuana, cocaine) Substance Use Type: Alcohol, Cocaine, Marijuana Hx Substance Use Treatment: Yes ([facility] 01/2017) - Substances Abused Margy Route: Oral Frequency: Daily Amount used: 1 pint Age of first use: 8 Date of Last Use: 03/22/17 Cocaine Route: Smoking Frequency: 3-6 times per week Amount used: $40 Age of first use: 18 Date of Last Use: 03/22/17 Marijuana/Hashish Route: Smoking Frequency: 3-6 times per week Amount used: $10 Age of first use: 10 Date of Last Use: 03/20/17 Family Disease History - Family Disease History Family Disease History: CA: Brother (Colon cancer-) Admission Physical Exam S - Vital Signs Vital Signs: Vital Signs - 24 hr 03/22/17 20:35 Temperature 97.8 F Pulse Rate 89 Respiratory 18 Rate Blood Pressure 143/82 - Physical General Appearance: Yes: Moderate Distress, Alcohol on Breath, Tremorous, Irritable, Sweating, Anxious HEENTM: Yes: EOMI, Normal Voice, CHRISTEL, Other (use reading glasses) Respiratory: Yes: Lungs Clear, Normal Breath Sounds, No Respiratory Distress Neck: Yes: Supple, Other (tatoo) Breast: Yes: Breast Exam Deferred Cardiology: Yes: Regular Rhythm, Regular Rate, S1, S2 Abdominal: Yes: Normal Bowel Sounds, Soft Genitourinary: Yes: Within Normal Limits Back: Yes: Within Normal Limits Musculoskeletal: Yes: Back pain, Muscle Pain, Muscle weakness Extremities: Yes: Normal Inspection, Tremors Neurological: Yes: Alert, Normal Mood/Affect, Normal Response Integumentary: Yes: Dry Lymphatic: Yes: Within Normal Limits - Diagnostic (1) Colon cancer Current Visit: Yes Status: Acute Qualifiers: Colon location: unspecified part of colon Qualified Code(s): C18.9 - Malignant neoplasm of colon, unspecified (2) Alcohol dependence with uncomplicated withdrawal Current Visit: Yes Status: Chronic (3) Cocaine dependence Current Visit: Yes Status: Chronic (4) Cannabis dependence Current Visit: Yes Status: Chronic (5) Diverticulitis Current Visit: Yes Status: Chronic Qualifiers: Diverticulitis site: large intestine Diverticulitis bleeding: without bleeding Diverticulitis complication: without perforation or abscess Qualified Code(s): K57.32 - Diverticulitis of large intestine without perforation or abscess without bleeding Comment: AUGMENTIN BID X 6 DAYS (6) GERD (gastroesophageal reflux disease) Current Visit: Yes Status: Chronic Qualifiers: Esophagitis presence: without esophagitis Qualified Code(s): K21.9 - Gastro -esophageal reflux disease without esophagitis (7) Nicotine dependence Current Visit: Yes Status: Chronic Qualifiers: Nicotine product type: cigarettes Substance use status: in withdrawal Qualified Code(s): F17.213 - Nicotine dependence, cigarettes, with withdrawal (8) Seizure disorder Current Visit: Yes Status: Chronic Comment: refuses to take keppra. Cleared for Admission [facility] - Detox or Rehab [facility] Level of Care: Medically Managed Detox Regimen/Protocol: Librium [facility] Breath Alcohol Content Breath Alcohol Content: 0.025 Urine Drug Screen - Results Drug Screen Negative: No Urine Drug Screen Results: THC-Marijuana, MAC-Cocaine, PCP-Phencyclidine
[2017-03-22] MEDS ORDERED: chlordiazePOXIDE HCL 25 MG CAPSULE PO PRN (21:42)
[2017-03-22] MEDS ORDERED: MAGNESIUM HYDROX 2400MG/30ML ORAL SUSPENSION 30 ML CUP PO PRN (21:42)
[2017-03-22] MEDS ORDERED: ACETAMINOPHEN 325 MG TABLET (FP) PO PRN (21:42)
[2017-03-22] MEDS ORDERED: MAGNESIUM CITRATE 300 ML BOTTLE PO PRN (21:42)
[2017-03-22] MEDS ORDERED: LOPERAMIDE HCL 2 MG CAPSULE PO PRN (21:42)
[2017-03-22] MEDS ORDERED: NICOTINE POLACRILEX 2 MG GUM BUC PRN (21:42)
[2017-03-22] MEDS ORDERED: guaiFENesin/D-METHORPHAN HB 10 ML UNIT-DOSE CUPS PO PRN (21:42)
[2017-03-22] MEDS ORDERED: IBUPROFEN 400 MG TABLET (FP) PO PRN (21:42)
[2017-03-22] MEDS ORDERED: MENTHOL/PHENOL 1 EACH UD MM PRN (21:42)
[2017-03-22] MEDS ORDERED: P-EPHED 60MG/TRIPROLIDI 2.5MG TABLET PO PRN (21:42)
[2017-03-22] MEDS ORDERED: COLLOIDAL OATMEAL 1 BAR EACH TP PRN (21:49)
[2017-03-22] MEDS: chlordiazePOXIDE HCL 25 MG CAPSULE PO SCH (23:32)
[2017-03-22] MEDS: THIAMINE HCL 100 MG TABLET (FP) PO SCH (23:32)
[2017-03-22] MEDS: RANITIDINE HCL 150 MG TABLET (FP) PO SCH (23:32)
[2017-03-23 01:27] LABS: URINE APPEARANCE SLCLOUDY; URINE BILIRUBIN NEGATIVE (NEGATIVE); URINE BLOOD NEGATIVE (NEGATIVE); URINE COLOR DKYELLOW; URINE GLUCOSE (UA) NEGATIVE (NEGATIVE); URINE KETONE TRACE (NEGATIVE); URINE LEUK ESTERASE NEGATIVE (NEGATIVE); URINE NITRITE NEGATIVE (NEGATIVE); URINE UROBILINOGEN NEGATIVE mg/dL (0.2-1.0)
[2017-03-23 01:45] LABS: URINE PROTEIN 1+ (NEGATIVE)
[2017-03-23 01:55] LABS: URINE HYALINE CAST 4 /lpf; URINE MUCUS MANY; URINE RBC <1 /hpf (0-3); URINE WBC 1 /hpf (3-5)
[2017-03-23] MEDS: chlordiazePOXIDE HCL 25 MG CAPSULE PO SCH ×4 (05:46→22:33)
--- NOTE | 2017-03-23 07:41 | CONSULT ---
[facility] Psychiatric Consult - Data Date of interview: 03/23/17 Admission source: [facility] Identifying data: This is 51 years opld male with no psychiatric hospitalization history intoxicatedwith: Alcohol, Cocaine, Cannabis, Nicotine Substance Abuse History: - Smoking Cessation. Smoking history: Current every day smoker. Have you smoked in the past 12 months: Yes. Aproximately how many cigarettes per day: 3. Cigars Per Day: 0. Hx Chewing Tobacco Use: No. Initiated information on smoking cessation: Yes. 'Breaking Loose' booklet given : 03/22/17. - Substance & Tx. History. Hx Alcohol Use: Yes (Margy). Hx Substance Use: Yes (Marjuana, cocaine). Substance Use Type: Alcohol, Cocaine, Marijuana. Hx Substance Use Treatment: Yes ([facility] 01/2017). - Substances Abused. Margy. Route: Oral. Frequency: Daily. Amount used: 1 pint. Age of first use: 8. Date of Last Use: 03/22/17. Cocaine. Route: Smoking. Frequency: 3-6 times per week. Amount used: $40. Age of first use: 18. Date of Last Use: 03/22/17. Marijuana/Hashish. Route: Smoking. Frequency: 3-6 times per week. Amount used: $10. Age of first use: 10. Date of Last Use: 03/20/17 Medical History: History of Colon Cancer, GERD, Diverticulitis, Seizure history Psychiatric History: Patient reports history of depression and anxiety, reports taking prior to admission: Trazodone 100mg po qhs. Remeron 15mg po qhs Physical/Sexual Abuse/Trauma History: Denies Additional Comment: Trazodone 100mg po qhs. Remeron 15mg po qhs Mental Status Exam - Mental Status Exam Alert and Oriented to: Time Cognitive Function: Fair Patient Appearance: Unkempt Mood: Sad Affect: Flat Patient Behavior: Sedated Speech Pattern: Delayed Voice Loudness: Mildly Soft/Quiet Thought Process: Circumstantial Thought Disorder: Being Controlled Hallucinations: Denies Suicidal Ideation: Denies Homicidal Ideation: Denies Insight/Judgement: Fair Sleep: Difficulty falling asleep Appetite: Fair Muscle strength/Tone: Mild Hypotonicity Gait/Station: Shuffling Additional Comments: Trazodone 100mg po qhs. Remeron 15mg po qhs
[2017-03-23] MEDS ORDERED: PATIENT'S OWN MEDICATION (NON-FORMULARY) (Lansoprazole 30 MG) PO SCH (10:00)
[2017-03-23 10:08] LABS: URINE LEUK ESTERASE Negative (NEGATIVE)
--- NOTE | 2017-03-23 10:09 | EKG ---
Test Reason : Blood Pressure : / mmHG Vent. Rate : 083 BPM Atrial Rate : 083 BPM P-R Int : 128 ms QRS Dur : 090 ms QT Int : 366 ms P-R-T Axes : 048 051 042 degrees QTc Int : 430 ms NORMAL SINUS RHYTHM WITH SINUS ARRHYTHMIA NORMAL ECG WHEN COMPARED WITH ECG OF 11-JAN-2017 18:05, NO SIGNIFICANT CHANGE WAS FOUND Confirmed by MARIAMA STRICKLAND MD ([id number]) on 03/23/2017 10:08:59 AM Referred By: Confirmed By:MARIAMA STRICKLAND MD
[2017-03-23 10:10] LABS: MCH 26.7 pg (25.7-33.7); MCHC 32.3 g/dl (32.0-35.9); MEAN CELL VOLUME 82.6 fl (80-96); MEAN PLT VOLUME 8.3 fl (7.5-11.1); PLATELET COUNT 259 K/MM3 (134-434); RDW 14.7 % (11.9-15.9); WHITE BLOOD COUNT 6.7 K/mm3 (4.0-10.0)
[2017-03-23 10:31] LABS: ALBUMIN 3.1 g/dl (3.4-5.0); ALK PHOS 139 U/L (45-117); ANION GAP 8 (8-16); BILIRUBIN,TOTAL 0.5 mg/dL (0.2-1.0); CALCIUM 8.9 mg/dL (8.5-10.1); CO2 26 mmol/L (21-32); CREATININE 1.1 mg/dL (0.7-1.3); GLUCOSE,RANDOM 106 mg/dL (74-106); SGOT/AST 33 U/L (15-37); SGPT/ALT 30 U/L (12-78); TOT PROT 6.7 g/dl (6.4-8.2)
[2017-03-23] MEDS: PRENATAL VITAMINS W/ FOLIC ACID TABLET (FP) PO SCH (10:49)
[2017-03-23] MEDS: RANITIDINE HCL 150 MG TABLET (FP) PO SCH ×2 (10:49→22:33)
[2017-03-23] MEDS: NICOTINE 14 MG/24 HOURS TOPICAL PATCH TD SCH (10:50)
--- NOTE | 2017-03-23 11:14 | PN ---
S CIWA - CIWA Score Nausea/Vomitin Muscle Tremors: 2 Anxiety: 3 Agitation: 2 Paroxysmal Sweats: 3 Orientation: 0-Oriented Tacttile Disturbances: 1-Very Mild Itch/Numbness Auditory Disturbances: 0-None Visual Disturbances: 1-Very Mild Sensitivity Headache: 0-None Present CIWA-Ar Total Score: 15 S COWS - Scale Resting Pulse: 0= VT 80 or Below Sweatin=Flushed/Facial Moisture Restless Observation: 1= Difficult to Sit Still Pupil Size: 1= Pupils >than Normal Bone or Joint Aches: 1= Mild Discomfort Runny Nose/ Eye Tearin= Nasal Congestion GI Upset > 30mins: 2= Nausea/Diarrhea Tremor Observation of Outstretched Hands: 1= Tremor [place], Not Seen Yawning Observation: 0= None Anxiety or Irritability: 2=Irritable/Anxious Goose Flesh Skin: 0=Smooth Skin COWS Score: 11 S Progress Note (SOAP) Subjective: interrupted sleep, sweats , shakes nausea, Objective: 03/23/17 11:12 Vital Signs Temperature 97.3 F L 03/23/17 11:06 Pulse Rate 76 03/23/17 11:06 Respiratory Rate 18 03/23/17 11:06 Blood Pressure 139/66 03/23/17 11:06 O2 Sat by Pulse Oximetry (%) Laboratory Tests 03/22/17 03/23/17 03/23/17 23:49 07:00 07:00 WBC 6.7 RBC 4.63 Hgb 12.4 D Hct 38.3 MCV 82.6 MCH 26.7 MCHC 32.3 RDW 14.7 Plt Count 259 MPV 8.3 Sodium 141 Potassium 3.8 D Chloride 107 Carbon Dioxide 26 Anion Gap 8 BUN 10 D Creatinine 1.1 Creat Clearance w eGFR > 60 Random Glucose 106 Calcium 8.9 Total Bilirubin 0.5 AST 33 D ALT 30 Alkaline Phosphatase 139 H Total Protein 6.7 Albumin 3.1 L Urine Color Dkyellow Urine Appearance Slcloudy Urine pH 5.0 Ur Specific [place] 1.029 Urine Protein 1+ H Urine Glucose (UA) Negative Urine Ketones Trace H Urine Blood Negative Urine Nitrite Negative Urine Bilirubin Negative Urine Urobilinogen Negative Ur Leukocyte Esterase Negative Urine WBC (Auto) 1 Urine RBC (Auto) <1 Ur Epithelial Cells Rare Hyaline Casts 4 Urine Mucus Many pt aox3 in nad ambulating Assessment: 03/23/17 11:13 withdrawal sx's Plan: cont. detox increase fluids
[2017-03-23] MEDS: MIRTAZAPINE 15 MG TABLET (FP) PO SCH (22:33)
[2017-03-23] MEDS: THIAMINE HCL 100 MG TABLET (FP) PO SCH (22:33)
[2017-03-23] MEDS: traZODone HCL 100 MG TABLET (FP) PO SCH (22:35)
[2017-03-24] MEDS: chlordiazePOXIDE HCL 25 MG CAPSULE PO SCH ×3 (05:21→17:40)
[2017-03-24] MEDS: PRENATAL VITAMINS W/ FOLIC ACID TABLET (FP) PO SCH (10:52)
[2017-03-24] MEDS: RANITIDINE HCL 150 MG TABLET (FP) PO SCH ×2 (10:52→22:02)
[2017-03-24] MEDS: NICOTINE 14 MG/24 HOURS TOPICAL PATCH TD SCH (10:52)
--- NOTE | 2017-03-24 11:09 | PN ---
[facility] CIWA - CIWA Score Nausea/Vomitin Muscle Tremors: 3 Anxiety: 3 Agitation: 3 Paroxysmal Sweats: 3 Orientation: 0-Oriented Tacttile Disturbances: 1-Very Mild Itch/Numbness Auditory Disturbances: 0-None Visual Disturbances: 0-None Headache: 1-Very Mild CIWA-Ar Total Score: 17 S Progress Note (SOAP) Subjective: nausa, sweats, interrupted sleep, anxiety, tremors Objective: 03/24/17 11:08 Vital Signs - 8 hr 03/24/17 03/24/17 03/24/17 03:30 06:22 09:24 Temperature 97 F L 97.5 F L Pulse Rate 72 82 Respiratory 18 18 18 Rate Blood Pressure 130/72 135/88 Laboratory Tests 03/22/17 03/23/17 03/23/17 23:49 07:00 07:00 WBC 6.7 RBC 4.63 Hgb 12.4 D Hct 38.3 MCV 82.6 MCH 26.7 MCHC 32.3 RDW 14.7 Plt Count 259 MPV 8.3 Sodium 141 Potassium 3.8 D Chloride 107 Carbon Dioxide 26 Anion Gap 8 BUN 10 D Creatinine 1.1 Creat Clearance w eGFR > 60 Random Glucose 106 Calcium 8.9 Total Bilirubin 0.5 AST 33 D ALT 30 Alkaline Phosphatase 139 H Total Protein 6.7 Albumin 3.1 L Urine Color Dkyellow Urine Appearance Slcloudy Urine pH 5.0 Ur Specific [place] 1.029 Urine Protein 1+ H Urine Glucose (UA) Negative Urine Ketones Trace H Urine Blood Negative Urine Nitrite Negative Urine Bilirubin Negative Urine Urobilinogen Negative Ur Leukocyte Esterase Negative Urine WBC (Auto) 1 Urine RBC (Auto) <1 Ur Epithelial Cells Rare Hyaline Casts 4 Urine Mucus Many RPR Titer 03/23/17 07:00 WBC RBC Hgb Hct MCV MCH MCHC RDW Plt Count MPV Sodium Potassium Chloride Carbon Dioxide Anion Gap BUN Creatinine Creat Clearance w eGFR Random Glucose Calcium Total Bilirubin AST ALT Alkaline Phosphatase Total Protein Albumin Urine Color Urine Appearance Urine pH Ur Specific [place] Urine Protein Urine Glucose (UA) Urine Ketones Urine Blood Urine Nitrite Urine Bilirubin Urine Urobilinogen Ur Leukocyte Esterase Urine WBC (Auto) Urine RBC (Auto) Ur Epithelial Cells Hyaline Casts Urine Mucus RPR Titer Nonreactive Assessment: 03/24/17 11:08 withdrawal sx, cotn detox, fluids, encourage ambulation
[2017-03-24] MEDS: THIAMINE HCL 100 MG TABLET (FP) PO SCH (22:01)
[2017-03-24] MEDS: MIRTAZAPINE 15 MG TABLET (FP) PO SCH (22:01)
[2017-03-24] MEDS: chlordiazePOXIDE 5 MG CAPSULE PO SCH (22:02)
[2017-03-24] MEDS: traZODone HCL 100 MG TABLET (FP) PO SCH (22:02)
[2017-03-25] MEDS: chlordiazePOXIDE 5 MG CAPSULE PO SCH ×3 (05:23→17:31)
[2017-03-25] MEDS: NICOTINE 14 MG/24 HOURS TOPICAL PATCH TD SCH (10:54)
[2017-03-25] MEDS: PRENATAL VITAMINS W/ FOLIC ACID TABLET (FP) PO SCH (10:54)
[2017-03-25] MEDS: RANITIDINE HCL 150 MG TABLET (FP) PO SCH ×2 (10:54→23:09)
--- NOTE | 2017-03-25 11:34 | PN ---
[facility] Progress Note (SOAP) Subjective: tired irritable Objective: 03/25/17 11:33 Vital Signs Temperature 97.0 F L 03/25/17 10:06 Pulse Rate 74 03/25/17 10:06 Respiratory Rate 18 03/25/17 10:06 Blood Pressure 137/95 03/25/17 10:06 O2 Sat by Pulse Oximetry (%) [id number] ambulating no acute distress Assessment: 03/25/17 11:34 withdrawal sx Plan: continue detox d/c in am
[2017-03-25] MEDS: MAG HYDROX/AL HYDROX/SIMETH 30 ML UNIT-DOSE CUP PO PRN (20:04)
[2017-03-25] MEDS: THIAMINE HCL 100 MG TABLET (FP) PO SCH (23:09)
[2017-03-25] MEDS: MIRTAZAPINE 15 MG TABLET (FP) PO SCH (23:09)
[2017-03-25] MEDS: chlordiazePOXIDE HCL 10 MG CAPSULE PO SCH (23:09)
[2017-03-25] MEDS: traZODone HCL 100 MG TABLET (FP) PO SCH (23:09)
[2017-03-26] MEDS: chlordiazePOXIDE HCL 10 MG CAPSULE PO SCH (04:51)
[2017-03-26] MEDS: MAG HYDROX/AL HYDROX/SIMETH 30 ML UNIT-DOSE CUP PO PRN (04:53)
[2017-03-26 06:09] VITALS: BP 135/78; PULSE 79; TEMP 97.7
[2017-03-26] MEDS: RANITIDINE HCL 150 MG TABLET (FP) PO SCH (08:59)
[2017-03-26] MEDS: PRENATAL VITAMINS W/ FOLIC ACID TABLET (FP) PO SCH (08:59)
--- NOTE | 2017-03-26 10:33 | DS ---
[facility] Detox Discharge Summary Admission Date: 03/22/17 Discharge Date: 03/26/17 - History Present History: Alcohol Dependence, Cocaine Dependence Pertinent Past History: GERD Diverticulosis - Physical Exam Results Vital Signs: Vital Signs Temperature 97.7 F 03/26/17 06:09 Pulse Rate 79 03/26/17 06:09 Respiratory Rate 18 03/26/17 06:09 Blood Pressure 135/78 03/26/17 06:09 O2 Sat by Pulse Oximetry (%) Pertinent Admission Physical Exam Findings: Withdrawal sx. Laboratory Last Values WBC 6.7 K/mm3 (4.0-10.0) 03/23/17 07:00 RBC 4.63 M/mm3 (4.00-5.60) 03/23/17 07:00 Hgb 12.4 GM/dL (11.7-16.9) D 03/23/17 07:00 Hct 38.3 % (35.4-49) 03/23/17 07:00 MCV 82.6 fl (80-96) 03/23/17 07:00 MCH 26.7 pg (25.7-33.7) 03/23/17 07:00 MCHC 32.3 g/dl (32.0-35.9) 03/23/17 07:00 RDW 14.7 % (11.9-15.9) 03/23/17 07:00 Plt Count 259 K/MM3 (134-434) 03/23/17 07:00 MPV 8.3 fl (7.5-11.1) 03/23/17 07:00 Sodium 141 mmol/L (136-145) 03/23/17 07:00 Potassium 3.8 mmol/L (3.5-5.1) D 03/23/17 07:00 Chloride 107 mmol/L (98-107) 03/23/17 07:00 Carbon Dioxide 26 mmol/L (21-32) 03/23/17 07:00 Anion Gap 8 (8-16) 03/23/17 07:00 BUN 10 mg/dL (7-18) D 03/23/17 07:00 Creatinine 1.1 mg/dL (0.7-1.3) 03/23/17 07:00 Creat Clearance w eGFR > 60 (>60) 03/23/17 07:00 Random Glucose 106 mg/dL (74-106) 03/23/17 07:00 Calcium 8.9 mg/dL (8.5-10.1) 03/23/17 07:00 Total Bilirubin 0.5 mg/dL (0.2-1.0) 03/23/17 07:00 AST 33 U/L (15-37) D 03/23/17 07:00 ALT 30 U/L (12-78) 03/23/17 07:00 Alkaline Phosphatase 139 U/L (45-117) H 03/23/17 07:00 Total Protein 6.7 g/dl (6.4-8.2) 03/23/17 07:00 Albumin 3.1 g/dl (3.4-5.0) L 03/23/17 07:00 Urine Color Dkyellow 03/22/17 23:49 Urine Appearance Slcloudy 03/22/17 23:49 Urine pH 5.0 (5.0-8.0) 03/22/17 23:49 Ur Specific [place] 1.029 (1.001-1.035) 03/22/17 23:49 Urine Protein 1+ (NEGATIVE) H 03/22/17 23:49 Urine Glucose (UA) Negative (NEGATIVE) 03/22/17 23:49 Urine Ketones Trace (NEGATIVE) H 03/22/17 23:49 Urine Blood Negative (NEGATIVE) 03/22/17 23:49 Urine Nitrite Negative (NEGATIVE) 03/22/17 23:49 Urine Bilirubin Negative (NEGATIVE) 03/22/17 23:49 Urine Urobilinogen Negative mg/dL (0.2-1.0) 03/22/17 23:49 Ur Leukocyte Esterase Negative (NEGATIVE) 03/22/17 23:49 Urine WBC (Auto) 1 /hpf (3-5) 03/22/17 23:49 Urine RBC (Auto) <1 /hpf (0-3) 03/22/17 23:49 Ur Epithelial Cells Rare /HPF (FEW) 03/22/17 23:49 Hyaline Casts 4 /lpf 03/22/17 23:49 Urine Mucus Many 03/22/17 23:49 RPR Titer Nonreactive (NONREACTIVE) 03/23/17 07:00 labs noted - Treatment Hospital Course: Detox Protocol Followed, Detoxed Safely, Responded well, Discharged Condition Good, Rehab Referral Accepted Patient has Accepted a Re[facility] Referral [facility]: [facility] - Medication Discharge Medications: Ambulatory Orders Lansoprazole [Prevacid -] 30 mg PO DAILY #30 cap.sr.24h 12/04/15 Mirtazapine [Remeron -] 15 mg PO HS #30 tablet 03/23/17 Trazodone HCl [Desyrel -] 100 mg PO HS #30 tablet 03/23/17 - Diagnosis (1) Substance-induced sleep disorder Status: Acute (2) Alcohol dependence with uncomplicated withdrawal Status: Acute (3) Cocaine dependence Status: Acute (4) Diverticulosis of colon Status: Chronic Qualifiers: Diverticulosis bleeding: diverticulosis without bleeding Qualified Code(s) : K57.30 - Diverticulosis of large intestine without perforation or abscess without bleeding (5) GERD (gastroesophageal reflux disease) Status: Chronic Qualifiers: Esophagitis presence: without esophagitis Qualified Code(s): K21.9 - Gastro -esophageal reflux disease without esophagitis - AMA Did Patient Leave Against Medical Advice: No
== END 2017-03-26 09:03 | disposition home or self-care (01) | DRG 774 ==
LOC: YASAS 17:54 → Y6N 22:59
PROVIDERS: ADMIT Internal Medicine; ATTEND Internal Medicine
PROC: HZ2ZZZZ Detoxification Services for Substance Abuse Treatment (ICD-10-PCS; principal; 2017-03-22)
DX: F10.230 Alcohol dependence with withdrawal, uncomplicated (principal); F14.20 Cocaine dependence, uncomplicated; F12.20 Cannabis dependence, uncomplicated; F17.213 Nicotine dependence, cigarettes, with withdrawal; F32.9 Major depressive disorder, single episode, unspecified; C18.9 Malignant neoplasm of colon, unspecified; K21.9 Gastro-esophageal reflux disease without esophagitis; K57.32 Diverticulitis of large intestine without perforation or abscess without bleeding
CPT/HCPCS: 36415; 80053; 81003; 81015; 85027; 86593; 93005; 93010

== ENCOUNTER 2018-11-19 12:08 | Emergency (ER) | payer SELFPAY ==
[2018-11-19 12:18] VITALS: BP 149/88; PULSE 100; TEMP 98; BMI 29.0
--- NOTE | 2018-11-19 13:31 | PDOC ---
History of Present Illness - General Chief Complaint: Injury Stated Complaint: LT ANKLE PAIN Time Seen by Provider: 11/19/18 12:23 - History of Present Illness Initial Comments: 11/19/18 13:30 53 y/o M [place] CM presents for evaluation of L ankle pain after describing an inversion injury 2 nights ago Past History - Past Medical History Allergies/Adverse Reactions: Allergies Allergy/AdvReac Type Severity Reaction Status Date / Time tomato Allergy Mild Verified 11/19/18 12:13 No Known Drug Allergies Allergy Verified 11/19/18 12:13 red meat Allergy Mild Uncoded 11/19/18 12:13 Home Medications: Ambulatory Orders Lansoprazole [Prevacid -] 30 mg PO DAILY #30 cap.sr.24h 12/04/15 Mirtazapine [Remeron -] 15 mg PO HS #30 tablet 05/04/18 traZODone HCL [Desyrel -] 100 mg PO HS #30 tablet 05/04/18 Anemia: No Asthma: No Cancer: Yes (recently diagnosed with colon cancer) Cardiac Disorders: No CVA: No COPD: No CHF: No Dementia: No Diabetes: No GI Disorders: Yes (Diverticulitis/GERD) Disorders: No HTN: No Hypercholesterolemia: No Kidney Stones: No Liver Disease: No Seizures: Yes (Seizure r/t alcohol 10/2016) Thyroid Disease: No - Surgical History Abdominal Surgery: No Appendectomy: No Cardiac Surgery: No Cholecystectomy: No Lung Surgery: No Neurologic Surgery: No Orthopedic Surgery: No - Reproductive History Testicular Surgery: No - Immunization History Immunization Up to Date: Yes - Suicide/Smoking/Psychosocial Hx Smoking History: Current every day smoker Have you smoked in the past 12 months: Yes Number of Cigarettes Smoked Daily: 20 Cigars Per Day: 0 Information on smoking cessation initiated: No 'Breaking Loose' booklet given: 03/22/17 Hx Alcohol Use: No Drug/Substance Use Hx: No Substance Use Type: Alcohol, Cocaine, Marijuana Hx Substance Use Treatment: Yes ([facility] 01/2017) Review of Systems - Review of Systems Musculoskeletal: Yes: Joint Pain *Physical Exam - Vital Signs Last Vital Signs Temp Pulse Resp BP Pulse Ox 98.0 F 100 H 18 149/88 98 11/19/18 12:13 11/19/18 12:13 11/19/18 12:13 11/19/18 12:13 11/19/18 12:13 - Physical Exam Comments: 11/19/18 13:28 L ankle skin color and temperature are normal. There is decreased ROM tenderness about the ATFL. swelling about the dorsum of the foot and lateral aspect of the ankle no other areas of tenderness from the knee to toes. [facility] ED Treatment Course - RADIOLOGY Radiology Studies Ordered: Category Date Time Status ANKLE & FOOT-LEFT* [RAD] Stat Radiology 11/19/18 12:26 Completed Medical Decision Making - Medical Decision Making 11/19/18 13:28 L ankel sprain no fx on raidograph *DC/Admit/Observation/Transfer Diagnosis at time of Disposition: Left ankle sprain - Discharge Dispostion Disposition: HOME Condition at time of disposition: Stable Decision to Admit order: No - Referrals Referrals: Jessica Snowden DPM [Primary Care Provider] - Joe Flores DO [Staff Physician] - - Patient Instructions Printed Discharge Instructions: Ankle Sprain, DI for Ankle Sprain Additional Instructions: Return to the emergency room for worsening symptoms. Weight bear as tolerated with crutches and the air cast. Tylenol for pain. Follow up with orthopedics in 1-2 days for further evaluation and treatment options - Post Discharge Activity
== END 2018-11-19 13:33 | disposition home or self-care (01) ==
LOC: JER 12:08
PROC: 2W3RX1Z Immobilization of Left Lower Leg using Splint (ICD-10-PCS; principal; 2018-11-19)
DX: S93.402A Sprain of unspecified ligament of left ankle, initial encounter (principal); X50.0XXA Overexertion from strenuous movement or load, initial encounter; Y93.9 Activity, unspecified; Y92.9 Unspecified place or not applicable; F17.210 Nicotine dependence, cigarettes, uncomplicated; C18.9 Malignant neoplasm of colon, unspecified; K21.9 Gastro-esophageal reflux disease without esophagitis; Z86.69 Personal history of other diseases of the nervous system and sense organs
CPT/HCPCS: 73610-TC-LT-FY; 73630-TC-LT; 99281-25

== ENCOUNTER 2018-12-03 10:38 | Emergency (ER) | payer SELFPAY ==
--- NOTE | 2018-12-03 10:43 | PDOC ---
History of Present Illness - General Stated Complaint: SEIZURE Time Seen by Provider: 12/03/18 10:43 - History of Present Illness Initial Comments: 12/03/18 10:55 53 year old man with a history of MDD, prior hx of cocaine, cannabis and eto dependence, colon CA (chemotherapy MWF at [facility]), diverticulitis and seizure disorder (noncompliant on Keppra) who presents with witnessed seizure < 1min occurring while walking down the street. The patient reports cough, LLQ abdominal pain and dysuria for 3 days. Denies any fever, nausea, vomiting, diarrhea, constipationor blood in the urine. He denies any recreational drug use but has a history of prior abuse. He does not give a reason as to why he is noncompliant with medications. He reports for the past 1-2 years his seizures have been twice a month. PCP: Hunter HARRISON GENERAL/CONSTITUTIONAL: No fever or chills. No weakness. HEAD, EYES, EARS, NOSE AND THROAT: No change in vision. No ear pain or discharge. No sore throat. CARDIOVASCULAR: No chest pain or shortness of breath RESPIRATORY: No wheezing, or hemoptysis. GASTROINTESTINAL: No vomiting, diarrhea or constipation. GENITOURINARY: No dysuria, frequency, or change in urination. MUSCULOSKELETAL: No joint or muscle swelling or pain. No neck or back pain. SKIN: No rash NEUROLOGIC: No headache, vertigo, loss of consciousness, or change in strength/ sensation. PE GENERAL: Awake, alert, and fully oriented, in no acute distress HEAD: No signs of trauma, normocephalic, atraumatic EYES: PERRLA, EOMI, sclera anicteric, conjunctiva clear ENT: oropharynx clear without exudates. Moist mucosa NECK: Normal ROM, supple LUNGS: No distress, speaks full sentences, clear to auscultation bilaterally HEART: Regular rate and rhythm, normal S1 and S2, no murmurs, rubs or gallops, peripheral pulses normal and equal bilaterally. ABDOMEN: Soft, LLQ tenderness to palpatin. No guarding, no rebound. No masses EXTREMITIES : Normal inspection, Normal range of motion, no edema. No clubbing or cyanosis. NEUROLOGICAL: Cranial nerves II through XII grossly intact. Normal speech, no focal sensorimotor deficits SKIN: Warm, Dry, normal turgor, no rashes or lesions noted MDM DDX including but not limited to: infectious vs tox vs electrolyte vs met vs noncompliance r/o diverticulitis vs worsening colon CA W/U: - cbc, cmp, tox, ua, head ct, cxr TX: - gretappra bere, ivf ED Course: Head CT - no acute pathology CXR - no acute pathology patient refuses contrast imaging Nonon CTAP ordered CTAP: acute sigmoid diverticulitis with intramural abscess nad microperforation flagyl and ceftriaxone dosed Jolie Shay PGY2 Emergency Medicine Past History - Past Medical History Allergies/Adverse Reactions: Allergies Allergy/AdvReac Type Severity Reaction Status Date / Time tomato Allergy Mild Verified 11/19/18 12:13 No Known Drug Allergies Allergy Verified 11/19/18 12:13 red meat Allergy Mild Uncoded 11/19/18 12:13 Home Medications: Ambulatory Orders Lansoprazole [Prevacid -] 30 mg PO DAILY #30 cap.sr.24h 12/04/15 Mirtazapine [Remeron -] 15 mg PO HS #30 tablet 05/04/18 traZODone HCL [Desyrel -] 100 mg PO HS #30 tablet 05/04/18 Anemia: No Asthma: No Cancer: Yes (recently diagnosed with colon cancer) Cardiac Disorders: No CVA: No COPD: No CHF: No Dementia: No Diabetes: No GI Disorders: Yes (Diverticulitis/GERD) Disorders: No HTN: No Hypercholesterolemia: No Kidney Stones: No Liver Disease: No Seizures: Yes (Seizure r/t alcohol 10/2016) Thyroid Disease: No - Surgical History Abdominal Surgery: No Appendectomy: No Cardiac Surgery: No Cholecystectomy: No Lung Surgery: No Neurologic Surgery: No Orthopedic Surgery: No - Reproductive History Testicular Surgery: No - Suicide/Smoking/Psychosocial Hx Smoking History: Current every day smoker Have you smoked in the past 12 months: Yes Number of Cigarettes Smoked Daily: 3 Cigars Per Day: 0 'Breaking Loose' booklet given: 03/22/17 Hx Alcohol Use: Yes (Margy) Drug/Substance Use Hx: Yes (Marjuana, cocaine) Substance Use Type: Alcohol, Cocaine, Marijuana Hx Substance Use Treatment: Yes ([facility] 01/2017) ED Treatment Course - LABORATORY CBC & Chemistry Diagram: 12/03/18 11:00 12/03/18 11:00 *DC/Admit/Observation/Transfer - Referrals Referrals: Ruperto Ulrich [Primary Care Provider] - - Patient Instructions - Post Discharge Activity
[2018-12-03] MEDS ORDERED: levETIRAcetam 500 MG/5 ML INJECTION VIAL IVPB ONE ×2 (10:47→11:07)
[2018-12-03 11:00] VITALS: BMI 28.1
[2018-12-03] MEDS ORDERED: SODIUM CHLORIDE 1,000 ML IV SCH (11:00)
[2018-12-03 11:22] LABS: BASO % 0.6 % (0-2.0); EOS % 1.5 % (0-4.5); HEMATOCRIT 36.3 % (35.4-49); HEMOGLOBIN 11.9 GM/dL (11.7-16.9); LYMPH % 11.7 % (8-40); MCHC 32.8 g/dl (32.0-35.9); MEAN CELL VOLUME 82.4 fl (80-96); MEAN PLT VOLUME 7.5 fl (7.5-11.1); MONO % 6.8 % (3.8-10.2); NEUT % 79.4 % (42.8-82.8); PLATELET COUNT 387 K/MM3 (134-434); RBC 4.41 M/mm3 (4.00-5.60); WHITE BLOOD COUNT 10.6 K/mm3 (4.0-10.0)
[2018-12-03 11:41] LABS: ALBUMIN 3.1 g/dl (3.4-5.0); BILIRUBIN,TOTAL 0.4 mg/dL (0.2-1); BLOOD UREA NITROGEN 11.4 mg/dL (7-18); CALCIUM 9.5 mg/dL (8.5-10.1); POTASSIUM 3.9 mmol/L (3.5-5.1); TOT PROT 7.1 g/dl (6.4-8.2)
--- NOTE | 2018-12-03 11:49 | PDOC ---
Documentation entered by Marisol Cage SCRIBE, acting as scribe for David Dan MD. David Dan MD: This documentation has been prepared by the Niles mensah Nirvannie, SCRIBE, under my direction and personally reviewed by me in its entirety. I confirm that the documentation accurately reflects all work, treatment, procedures, and medical decision making performed by me. Attending Attestation - Resident Resident Name: Jolie Shay - ED Attending Attestation I have performed the following: I have examined & evaluated the patient, The case was reviewed & discussed with the resident, I agree w/resident's findings & plan, Exceptions are as noted - HPI HPI: 12/03/18 11:07 The patient is a 53 year old male, with a significant past medical history of seizures (on Keppra) and colon cancer (on IV chemo 3x/week), who presents to the emergency department s/p witnessed seizure. As per at bedside, pt had his usual GTC. The episode lasted a minute or less. denies any head/neck trauma. Pt denies urinary/bowel incontinence, or change in strength/sensation. He denies any recent fevers, chills, headache or dizziness. He denies any recent nausea, vomiting, diarrhea or constipation. He denies any recent chest pain or shortness of breath. He denies any recent dysuria, frequency, urgency or hematuria. Pt admits to not taking his keppra over the past 4 days. Allergies: NKDA. Primary Care Physician: Dr. Ulrich. - Physicial Exam PE: 12/03/18 12:17 "GENERAL: Awake, alert, and fully oriented, in no acute distress. HEAD: No signs of trauma EYES: PERRLA, EOMI, sclera anicteric, conjunctiva clear ENT: Auricles normal inspection, hearing grossly normal, nares patent, oropharynx clear without exudates. Moist mucosa NECK: Nontender, no stepoffs, Normal ROM, supple, no lymphadenopathy, JVD, or masses LUNGS: Breath sounds equal, clear to auscultation bilaterally. No wheezes, and no crackles HEART: Regular rate and rhythm, normal S1 and S2, no murmurs, rubs or gallops ABDOMEN: + LLQ TTP, normoactive bowel sounds. No guarding, no rebound. No masses EXTREMITIES: Normal range of motion, no edema. No clubbing or cyanosis. No cords, erythema, or tenderness NEUROLOGICAL: Cranial nerves II through XII intact. 5/5 strength and sensation in all extremities, Normal speech, normal gait, normal cerebellar function SKIN: Warm, Dry, normal turgor, no rashes or lesions noted. - Medical Decision Making 12/03/18 12:17 53 M with seizure. Likely breakthrough seizure 2/2 med noncompliance over the past 4 days. Will evaluate for infectious/metabolic cause of seizure. Pt with LLQ tenderness on exam, h/o diverticulitis. Will obtain CT. - Labs, CXR, UA - CTAP - Keppra load 12/03/18 14:[address] head unremarkable Pt refusing IV contrast for CTAP. Will order non-con CT 12/03/18 15:40 CT shows diverticulitis + abscess Will consult surgery 12/03/18 17:17 Pt to be txfer'ed to [facility] for colorectal surgery evaluation given pt's h/ o colon CA
[2018-12-03 11:52] LABS: PH,URINE 6.5 (5.0-8.0); URINE APPEARANCE CLEAR; URINE BILIRUBIN NEGATIVE (NEGATIVE); URINE COLOR YELLOW; URINE GLUCOSE (UA) NEGATIVE (NEGATIVE); URINE KETONE NEGATIVE (NEGATIVE); URINE LEUK ESTERASE NEGATIVE (NEGATIVE); URINE NITRITE NEGATIVE (NEGATIVE); URINE PROTEIN NEGATIVE (NEGATIVE)
[2018-12-03] MEDS ORDERED: ACETAMINOPHEN 1000 MG/100 ML VIAL (NON FORMULARY) IVPB ONE (12:08)
[2018-12-03] MEDS ORDERED: ACETAMINOPHEN INJECTION 100 ML IVPB ONE (12:08)
[2018-12-03 14:07] LABS: METHADONE, UR NEGATIVE ng/ml (CUTOFF=300); PHENCYCLIDINE,URINE NEGATIVE ng/ml (CUTOFF=25); URINE AMPHETAMINES NEGATIVE ng/ml (CUTOFF=500); URINE BARBITURATES NEGATIVE ng/ml (CUTOFF=200); URINE BENZODIAZEPINES NEGATIVE ng/ml (CUTOFF=200)
[2018-12-03 14:12] LABS: COCAINE, UR POSITIVE ng/ml (CUTOFF=300); OPIATES, URI POSITIVE ng/ml (CUTOFF=300)
[2018-12-03] MEDS ORDERED: CEFTRIAXONE 1 GM in DEXTROSE 5%-WATER - 100 ML IVPB ONE (15:33)
[2018-12-03] MEDS ORDERED: CEFTRIAXONE 1 GM/50 ML BAG ONE (15:42)
[2018-12-03 20:00] VITALS: BP 146/83; PULSE 82
[2018-12-03 20:10] VITALS: TEMP 98.1
== END 2018-12-03 20:10 | disposition short-term general hospital (02) ==
LOC: JER 10:38
PROC: 3E03329 Introduction of Other Anti-infective into Peripheral Vein, Percutaneous Approach (ICD-10-PCS; principal; 2018-12-03)
PROC: 3E03329 Introduction of Other Anti-infective into Peripheral Vein, Percutaneous Approach (ICD-10-PCS; 2018-12-03)
PROC: 3E033NZ Introduction of Analgesics, Hypnotics, Sedatives into Peripheral Vein, Percutaneous Approach (ICD-10-PCS; 2018-12-03)
PROC: 3E033GC Introduction of Other Therapeutic Substance into Peripheral Vein, Percutaneous Approach (ICD-10-PCS; 2018-12-03)
DX: K57.20 Diverticulitis of large intestine with perforation and abscess without bleeding (principal); G40.909 Epilepsy, unspecified, not intractable, without status epilepticus
CPT/HCPCS: 36415; 70450-TC; 71045-TC-FY; 74176-TC; 80053; 80177; 80307; 81003; 82962; 85025; 87086; 99285-25; J0131; J7030

== ENCOUNTER 2018-12-27 08:18 | Emergency (ER) | payer OTHER ==
[2018-12-27 08:24] VITALS: BP 126/73; PULSE 85; TEMP 98.5; BMI 25.5
[2018-12-27] MEDS ORDERED: ACETAMINOPHEN 1000 MG/100 ML VIAL (NON FORMULARY) IVPB ONE (09:14)
[2018-12-27] MEDS ORDERED: SODIUM CHLORIDE 0.9% 1000 ML INFUS.BAG IV ONE (09:14)
[2018-12-27] MEDS ORDERED: FAMOTIDINE 20 MG/50 ML IVPB 20 MG/50 ML MG IVPB ONE (09:14)
[2018-12-27] MEDS ORDERED: ACETAMINOPHEN INJECTION 100 ML IVPB ONE (09:19)
--- NOTE | 2018-12-27 09:25 | PDOC ---
Documentation entered by Priya Christine SCRIBE, acting as scribe for Simin Olson DO. Simin Olson DO: This documentation has been prepared by the Emmett mensah Adrianna, SCRIBE, under my direction and personally reviewed by me in its entirety. I confirm that the documentation accurately reflects all work, treatment, procedures, and medical decision making performed by me. History of Present Illness - General Chief Complaint: Pain Stated Complaint: ABD PAIN Time Seen by Provider: 12/27/18 08:35 - History of Present Illness Initial Comments: The patient is a 53 year old male, with a significant PMH of MDD, prior hx of cocaine, cannabis and eto dependence, colon CA (s/p colon resection 2 weeks ago at [facility] with Dr. Parada), diverticulitis and seizure disorder ( noncompliant on Keppra), who presents to the ED for evaluation of abdominal pain for 3 days. Patient notes he had colon cancer resection done 2 weeks ago at [facility] with Dr. Parada, and was discharged 3 days ago. Since his discharge, patient complains of diffuse abdominal pain, worse over his incision sites. He endorses associated subjective fevers, chills, diarrhea, and dysuria. Patient notes he has been able to eat a small amount of food at a time, and reports feeling dehydrated. He has been able to pass gas at this time. He states that Dr. Bullock at [facility] wanted to have a CT scan of his abdomen yesterday, but patient declined as he was scared. Patient is unsure if his cancer was limited to his colon. Denies chest pain, SOB, nausea, vomit, constipation, blood in stool, hematuria. Allergies: Tomatoes, red meat Surgical History: Colon CA resection Social History: Prior cocaine, cannabis, and EtOH. Lives at retirement. PCP: Dr. Harrison Surgeon: Dr. Parada Past History - Past Medical History Allergies/Adverse Reactions: Allergies Allergy/AdvReac Type Severity Reaction Status Date / Time tomato Allergy Mild Verified 12/27/18 08:32 No Known Drug Allergies Allergy Verified 12/27/18 08:32 red meat Allergy Mild Uncoded 12/27/18 08:32 Home Medications: Ambulatory Orders Lansoprazole [Prevacid -] 30 mg PO DAILY #30 cap.sr.24h 12/04/15 Mirtazapine [Remeron -] 15 mg PO HS #30 tablet 05/04/18 traZODone HCL [Desyrel -] 100 mg PO HS #30 tablet 05/04/18 Ciprofloxacin HCl [Cipro] 500 mg PO BID #20 tablet 12/27/18 metroNIDAZOLE [Flagyl -] 500 mg PO TID #30 tablet 12/27/18 Anemia: No Asthma: No Cancer: Yes (recently diagnosed with colon cancer) Cardiac Disorders: No CVA: No COPD: No CHF: No Dementia: No Diabetes: No GI Disorders: Yes (Diverticulitis/GERD) Disorders: No HTN: No Hypercholesterolemia: No Kidney Stones: No Liver Disease: No Seizures: Yes (Seizure r/t alcohol 10/2016) Thyroid Disease: No - Surgical History Abdominal Surgery: No Appendectomy: No Cardiac Surgery: No Cholecystectomy: No GI Surgery: Yes (colon resection) Lung Surgery: No Neurologic Surgery: No Orthopedic Surgery: No - Reproductive History Testicular Surgery: No - Immunization History Immunization Up to Date: Yes - Psycho Social/Smoking Cessation Hx Smoking History: Current every day smoker Have you smoked in the past 12 months: Yes Number of Cigarettes Smoked Daily: 3 Cigars Per Day: 0 Information on smoking cessation initiated: No 'Breaking Loose' booklet given: 03/22/17 Hx Alcohol Use: Yes (Margy) Drug/Substance Use Hx: Yes (Marjuana, cocaine) Substance Use Type: Alcohol, Cocaine, Marijuana Hx Substance Use Treatment: Yes ([facility] 01/2017) Review of Systems - Review of Systems Comments:: GENERAL/CONSTITUTIONAL: +Dehydrated. +Subjective fever. +Chills. No weakness. HEAD, EYES, EARS, NOSE AND THROAT: No change in vision. No ear pain or discharge. No sore throat. GASTROINTESTINAL: +Diffuse abdominal pain, worse over the incision sites. + Diarrhea. No nausea, vomiting, or constipation. GENITOURINARY: +Dysuria. No d frequency, or change in urination. CARDIOVASCULAR: No chest pain or shortness of breath. RESPIRATORY: No cough, wheezing, or hemoptysis. MUSCULOSKELETAL: No joint swelling or pain. No neck or back pain. SKIN: No rash NEUROLOGIC: No headache, vertigo, loss of consciousness, or change in strength/ sensation. ENDOCRINE: No increased thirst. No abnormal weight change. HEMATOLOGIC/LYMPHATIC: No anemia, easy bleeding, or history of blood clots. ALLERGIC/IMMUNOLOGIC: No hives or skin allergy. *Physical Exam - Vital Signs Last Vital Signs Temp Pulse Resp BP Pulse Ox 98.5 F 85 18 126/73 100 12/27/18 08:19 12/27/18 08:19 12/27/18 08:19 12/27/18 08:19 12/27/18 08:19 - Physical Exam Comments: Constitutional: Awake, alert, oriented. No acute distress. Head: Normocephalic. Atraumatic Eyes: PERRL. EOMI. Conjunctivae are not pale. ENT: Mucous membranes are moist and intact. Posterior pharynx without exudates or erythema. Uvula midline. Neck: Supple. Full ROM. No lymphadenopathy. Cardiovascular: Regular rate. Regular rhythm. S1, S2 regular. Distal pulses are 2+ and symmetric. Pulmonary/Chest: No evidence of respiratory distress. Clear to auscultation bilaterally No wheezing, rales or rhonchi. Abdominal: +Mildly diffusely tender to palpation, worse over incision sites. + 3 laparoscopic scars and a small midline incision, that are well-approximated and healing. +One suture in place at the LLQ, no drainage or erythema. Soft and nondistended. No rebound, guarding or rigidity. No organomegaly. No palpable masses. Good bowel sounds. Back: No CVA tenderness. Musculoskeletal: No edema. No cyanosis. No clubbing. Full range of motion in all extremities. Nocalf tenderness. Radial/pedal pulses are intact and 2+ bilaterally Skin: Skin is warm and dry. No petechiae. No purpura. Neurological: Alert and oriented to person, place, and time. Cranial nerves II -XII are grossly intact. Normal speech. Strength is grossly symmetric. No sensory deficits. Psychiatric: Good eye contact. Normal interaction, affect and behavior. Heart Score/ECG Review - ECG Intrepretation Comment:: 12/27/18 09:25 sinus at 67, nl axis, nl interval, no acute st/t wave findings ED Treatment Course - LABORATORY CBC & Chemistry Diagram: 12/27/18 09:21 12/27/18 09:21 - RADIOLOGY Radiology Studies Ordered: Category Date Time Status ABDOMEN & PELVIS CT WITH CONTR [CT] Stat CT Scan 12/27/18 09:13 Ordered CHEST X-RAY PORTABLE* [RAD] Stat Radiology 12/27/18 09:13 Completed Radiograph Interpretation: EXAM#: TYPE/EXAM: RESULT: [id number] RAD/CHEST X-RAY PORTABLE* Chest: Shortness of breath Impression: No acute chest pathology. Reported By: Garry Wyatt MD 12/27/18 09:23 EXAM#: TYPE/EXAM: RESULT: [id number] CT/ABDOMEN PELVIS CT WITH CONTR Clinical history: 53-year-old man postop laparoscopic colon surgery for carcinoma 2 weeks ago. Impression: Several small droplets of air in the left diaphragm in this 2 week postoperative laparoscopic: Surgery resection and anastomosis. I feel this is more likely to represent a tiny amount of residual postoperative air. Microperforation not excluded but not visualized. The anastomosis appears grossly unremarkable. There is diffuse wall thickening and shagginess of the wall of the residual colon at least to the anastomosis raising the question of colitis. Other findings as above. Clinical correlation advised. Addendum: Discussed with Dr. Olson in the ER at 11:47 AM. Reported By: Garry Munguia MD 12/27/18 11:51 Medical Decision Making - Medical Decision Making Medical Decision Making: I, Dr. Simin Olson, DO, attest that this document has been prepared under my direction and personally reviewed by me in its entirety. I further attest, that it accurately reflects all work, treatment, procedures and medical decision -making performed by me. 9:42a a/p: 53yo undomiciled male with recent dx and surgery for colon ca 2 weeks ago -pain since tuesday since dc from [facility] -saw Dr. Bullock-pts pmd yesterday who recommended ct imaging, but pt was scared and didn't go -taking percocet q6 as rx -living at a retirement -no n/v-tolerating po -pt with diarrhea - no abx while at [facility] per the patient -hx of seizures also and taking keppra -will send labs, will give ivf hydration, will send for ct abd/pelvis to eval abd pain post op -will monitor and reassess 10:42 labs reviewed no elevated wbc, mildly elevated alk phos pt drinking for ct tolerating po 10:50a pt now with nausea and not tolerating contrast will send for ct with iv contrast only discussed CT findings with radiology and then discussed ct findings with the patient pt states he needs to leave ama states he needs to go to court because of a warrant out for his arrest pt states he will go to court and return to the ED called Dr. Goldberg to discuss ct findings - pending call back given pt wants to ama, will start flagyl for colitis and cipro discussed importance of return to the ED or to his surgeon gregory discussed risks of signing out ama and need to follow up with his surgeon. pt verbalized understanding given a copy of his ct findings Note: The patient insists on leaving the emergency dept and is signing out against medical advice. The patient understands the risks and complications that may result from the refusal of medical care and admission which includes and permanent disability. The patient has the mental capacity of understanding the risks of refusing care and is capable of making an informed decision. The patient was instructed to return to the emergency department should he change his mind regarding medical care or should his condition worsen. The patient signed the Against Medical Advice form. pt ambulated to the desk stating he needed to leave now again discussed importance of staying and need to return to an ED GREGORY states he must make it to court pt states he needs to sign the AMA paperwork Discharge - Discharge Information Problems reviewed: Yes Clinical Impression/Diagnosis: Colitis, Postoperative abdominal pain, Intra-abdominal free air of unknown etiology Condition: Unchanged/Unknown Disposition: AGAINST MEDICAL ADVICE - Additional Discharge Information Prescriptions: Ciprofloxacin HCl [Cipro] 500 mg PO BID #20 tablet metroNIDAZOLE [Flagyl -] 500 mg PO TID #30 tablet - Follow up/Referral Referrals: Ruperto Ulrich [Primary Care Provider] - - Patient Discharge Instructions Additional Instructions: Please take all medications as prescribed. Please return to the ED immediately and GREGORY. Please call your surgeon today to discuss ct findings. You were given a copy of your CT today and there are findings concerning for a small amount of air in the abdomen, which is abnormal and swelling of the residual colon, concerning for infection. - Post Discharge Activity
[2018-12-27 09:57] LABS: BASO % 0.9 % (0-2.0); EOS % 1.3 % (0-4.5); HEMATOCRIT 35.8 % (35.4-49); HEMOGLOBIN 11.8 GM/dL (11.7-16.9); LYMPH % 19.1 % (8-40); MCH 26.8 pg (25.7-33.7); MEAN CELL VOLUME 81.3 fl (80-96); MEAN PLT VOLUME 7.5 fl (7.5-11.1); MONO % 6.6 % (3.8-10.2); NEUT % 72.1 % (42.8-82.8); PLATELET COUNT 372 K/MM3 (134-434); RBC 4.41 M/mm3 (4.00-5.60); RDW 14.5 % (11.9-15.9); WHITE BLOOD COUNT 7.2 K/mm3 (4.0-10.0)
[2018-12-27 10:12] LABS: PH,URINE 6.5 (5.0-8.0); URINE APPEARANCE CLEAR; URINE BILIRUBIN NEGATIVE (NEGATIVE); URINE COLOR YELLOW; URINE GLUCOSE (UA) NEGATIVE (NEGATIVE); URINE KETONE 1+ (NEGATIVE); URINE LEUK ESTERASE NEGATIVE (NEGATIVE); URINE NITRITE NEGATIVE (NEGATIVE); URINE PROTEIN TRACE (NEGATIVE); URINE UROBILINOGEN 0.2 mg/dL (0.2-1.0)
[2018-12-27 10:27] LABS: ALBUMIN 3.3 g/dl (3.4-5.0); BILIRUBIN,TOTAL 0.7 mg/dL (0.2-1); BLOOD UREA NITROGEN 7.3 mg/dL (7-18); CALCIUM 9.9 mg/dL (8.5-10.1); MAGNESIUM 2.2 mg/dL (1.8-2.4); POTASSIUM 3.7 mmol/L (3.5-5.1); TOT PROT 7.6 g/dl (6.4-8.2)
[2018-12-27 10:42] LABS: INR 1.13 (0.83-1.09); PROTHROMBIN TIME (PATIENT) 13.4 SEC (9.7-13.0)
[2018-12-27] MEDS ORDERED: ONDANSETRON 4 MG/2 ML VIAL IVPUSH ONE (10:50)
[2018-12-27] MEDS ORDERED: metroNIDAZOLE 250 MG TABLET PO ONE (12:04)
[2018-12-27] MEDS ORDERED: CIPROFLOXACIN 500 MG TABLET (RESTRICTED TO ID) PO ONE (12:08)
[2018-12-27] MEDS ORDERED: metroNIDAZOLE 250 MG TABLET ONE (12:13)
--- NOTE | 2018-12-27 12:20 | EKG ---
Test Reason : Blood Pressure : / mmHG Vent. Rate : 067 BPM Atrial Rate : 067 BPM P-R Int : 136 ms QRS Dur : 092 ms QT Int : 402 ms P-R-T Axes : 043 043 041 degrees QTc Int : 424 ms SINUS RHYTHM WITH MARKED SINUS ARRHYTHMIA OTHERWISE NORMAL ECG WHEN COMPARED WITH ECG OF 22-MAR-2017 23:37, NO SIGNIFICANT CHANGE WAS FOUND Confirmed by MARIAMA STRICKLAND MD ([id number]) on 12/27/2018 12:20:22 PM Referred By: Confirmed By:MARIAMA STRICKLAND MD
== END 2018-12-27 12:30 | disposition left against medical advice (07) ==
LOC: JER 08:18
PROC: 3E033GC Introduction of Other Therapeutic Substance into Peripheral Vein, Percutaneous Approach (ICD-10-PCS; principal; 2018-12-27)
PROC: 3E033NZ Introduction of Analgesics, Hypnotics, Sedatives into Peripheral Vein, Percutaneous Approach (ICD-10-PCS; 2018-12-27)
PROC: 3E033GC Introduction of Other Therapeutic Substance into Peripheral Vein, Percutaneous Approach (ICD-10-PCS; 2018-12-27)
DX: R53.1 Weakness (principal); K52.9 Noninfective gastroenteritis and colitis, unspecified; K66.8 Other specified disorders of peritoneum; G89.18 Other acute postprocedural pain; F33.8 Other recurrent depressive disorders; F11.21 Opioid dependence, in remission; F14.21 Cocaine dependence, in remission; F12.21 Cannabis dependence, in remission; Z85.038 Personal history of other malignant neoplasm of large intestine; Z90.49 Acquired absence of other specified parts of digestive tract; K57.32 Diverticulitis of large intestine without perforation or abscess without bleeding; G40.909 Epilepsy, unspecified, not intractable, without status epilepticus; Z59.0 Homelessness; Z91.018 Allergy to other foods
CPT/HCPCS: 36415; 71045-TC-FY; 74177-TC; 80053; 81003; 83605; 83690; 83735; 85025; 85610; 85730; 86850; 86900; 86901; 87086; 93005; 93010; 99284-25; J7030

== ENCOUNTER 2018-12-28 02:39 | Inpatient (IN) | payer OTHER ==
[2018-12-28 02:48] VITALS: BMI 31.3
[2018-12-28] MEDS ORDERED: SODIUM CHLORIDE 1,000 ML IV STA (02:55)
--- NOTE | 2018-12-28 03:05 | PDOC ---
Attending Attestation - Resident Resident Name: AngelitaRonit - ED Attending Attestation I have performed the following: I have examined & evaluated the patient, The case was reviewed & discussed with the resident, I agree w/resident's findings & plan - HPI HPI: 12/28/18 03:04 see resident hpi - Physicial Exam PE: 12/28/18 03:04 agree with resident exam - Medical Decision Making 12/28/18 03:04 53 yo male with seizure, history of epilepsy seen yesterday in this ED and signed AMA ct brain, repeat labs and probable admit for obs
[2018-12-28] MEDS ORDERED: DIPHTH,PERTUSS(ACELL),TET 0.5 ML DISP.SYRIN IM ONE (03:26)
--- NOTE | 2018-12-28 03:37 | PDOC ---
History of Present Illness - General Chief Complaint: Seizure Stated Complaint: SEIZURES Time Seen by Provider: 12/28/18 02:47 History Source: Spouse, Old Records Exam Limitations: Other (somnolent) - History of Present Illness Initial Comments: 12/28/18 05:02 53yo M with PMH of Colon Ca s/p resection 2w ago, Seizure d/o, BIBA for seizure. Per , pt had seizure 25min prior to ambulance arrival. Seizure lasted 2 minutes or so, pt was confused after, no incontinence. Pt wanted to go for a walk but was still confused. Per , pt said he felt funny and fell to the ground, hitting his head. Was recently here for a seizure as well but left AMA. He has a history of medication noncompliance. Per , they have an appointment with surgery in 2w and he had an appointment with his oncologist on Tuesday. Pt is somnolent, withdrawing to pain, spontaneously moving extremities. PMD: none Onc: [place] PMH: see hpi PSH: see hpi Meds: see med rec Allergies: nkda Past History - Past Medical History Allergies/Adverse Reactions: Allergies Allergy/AdvReac Type Severity Reaction Status Date / Time tomato Allergy Mild Verified 12/27/18 08:32 No Known Drug Allergies Allergy Verified 12/27/18 08:32 red meat Allergy Mild Uncoded 12/27/18 08:32 Home Medications: Ambulatory Orders Enoxaparin [Lovenox -] 40 mg PO DAILY 12/28/18 Ibuprofen 600 mg PO Q6H 12/28/18 Oxycodone HCl/Acetaminophen [Percocet 5-325 mg Tablet] 1 tab PO Q6H 12/28/18 levETIRAcetam [Keppra -] 500 mg PO BID 12/28/18 Anemia: No Asthma: No Cancer: Yes (recently diagnosed with colon cancer) Cardiac Disorders: No CVA: No COPD: No CHF: No Dementia: No Diabetes: No GI Disorders: Yes (Diverticulitis/GERD) Disorders: No HTN: No Hypercholesterolemia: No Kidney Stones: No Liver Disease: No Seizures: Yes (Seizure r/t alcohol 10/2016) Thyroid Disease: No - Surgical History Abdominal Surgery: No Appendectomy: No Cardiac Surgery: No Cholecystectomy: No GI Surgery: Yes (colon resection) Lung Surgery: No Neurologic Surgery: No Orthopedic Surgery: No - Reproductive History Testicular Surgery: No - Immunization History Immunization Up to Date: Yes - Psycho Social/Smoking Cessation Hx Smoking History: Unknown if ever smoked Have you smoked in the past 12 months: Yes Number of Cigarettes Smoked Daily: 3 Cigars Per Day: 0 'Breaking Loose' booklet given: 03/22/17 Hx Alcohol Use: Yes (Margy) Drug/Substance Use Hx: Yes (Marjuana, cocaine) Substance Use Type: Alcohol, Cocaine, Marijuana Hx Substance Use Treatment: Yes ([facility] 01/2017) Review of Systems - Review of Systems Able to Perform ROS?: No *Physical Exam - Vital Signs Last Vital Signs Temp Pulse Resp BP Pulse Ox 97.6 F 70 18 129/69 100 12/28/18 02:42 12/28/18 02:42 12/28/18 02:42 12/28/18 02:42 12/28/18 02:42 - Physical Exam General Appearance: Yes: Nourished, Appropriately Dressed, Other (somnolent) HEENT: positive: EOMI, CHRISTEL, Pharynx Normal Neck: positive: Trachea midline, Supple. negative: Carotid bruit Respiratory/Chest: positive: Lungs Clear, Normal Breath Sounds. negative: Crackles, Rales, Rhonchi, Stridor, Wheezing Cardiovascular: positive: Regular Rhythm, Regular Rate, S1, S2. negative: Edema , JVD, Murmur Vascular Pulses: Dorsalis-Pedis (R): 2+, Doralis-Pedis (L): 2+ Gastrointestinal/Abdominal: positive: Normal Bowel Sounds, Soft, Other (old surgical scars, healing well. ). negative: Tender Musculoskeletal: negative: CVA Tenderness Extremity: positive: Normal Capillary Refill. negative: Swelling, Calf Tenderness Integumentary: positive: Normal Color, Dry, Warm Neurologic: positive: Respond to painful stimul. negative: cottage supervisor II-XII NML intact (could not assess), Fully Oriented, Alert, Facial Droop ED Treatment Course - LABORATORY CBC & Chemistry Diagram: 12/28/18 05:24 12/28/18 05:24 - RADIOLOGY Radiology Studies Ordered: Category Date Time Status HEAD CT WITHOUT CONTRAST [CT] Stat CT Scan 12/28/18 03:14 Ordered CHEST X-RAY PORTABLE* [RAD] Stat Radiology 12/28/18 03:01 Ordered Medical Decision Making - Medical Decision Making 12/28/18 06:34 53yo M with significant comorbidities presenting to ED s/p seizure and fall. upon arrival, pt is somnolent but responsive to painful stimuli, moving eyes and limbs spontaneously. Laceration to R eyebrow approx 3cm. negative babinski. ddx includes but not limited to seizure, frankie's paralysis, cva/tia, cervical spine injury vitals wnl. labs ordered including ts, coags, keppra levels, lactate. giving iv fluids. activated code terry at [address]. [address], no active bleed noted. could be seizure? noted when trying to perform lac repair, pt only moving L side of body. moving eyes spontaneously. Not a candidate for tpa given history of seizures and relative contraindication of abdominal surgery. giving 2mg ativan. CT head: The ventricular system is midline and nondilated. The sulcal pattern is normal for the patient's age. There is no bleed, mass, extra-axial fluid collection or mass effect. No skull fracture or skull lesion is identified. The visualized paranasal sinuses and mastoid air cells are clear. CT cspine: There is no fracture, subluxation, prevertebral soft tissue swelling. There are mild degenerative changes. The lung apices are clear. ekg pending although note said that it had been done. will order again. ' laceration repaired with dermabond. will need admission for seizure v. cva. signed out to day team: pending UA, neuro consult. vitals have been stable. Discharge - Discharge Information Problems reviewed: Yes Clinical Impression/Diagnosis: Seizure, Unilateral weakness Condition: Guarded - Follow up/Referral - Patient Discharge Instructions - Post Discharge Activity
[2018-12-28 05:43] LABS: EOS % 0.5 % (0-4.5); HEMATOCRIT 30.4 % (35.4-49); LYMPH % 12.2 % (8-40); MCH 27.1 pg (25.7-33.7); MCHC 33.1 g/dl (32.0-35.9); MEAN CELL VOLUME 82.1 fl (80-96); MEAN PLT VOLUME 7.4 fl (7.5-11.1); NEUT % 77.3 % (42.8-82.8); PLATELET COUNT 258 K/MM3 (134-434); RDW 14.8 % (11.9-15.9); WHITE BLOOD COUNT 9.9 K/mm3 (4.0-10.0)
[2018-12-28 05:53] LABS: INR 1.18 (0.83-1.09); PROTHROMBIN TIME (PATIENT) 13.9 SEC (9.7-13.0)
[2018-12-28] MEDS ORDERED: LORazepam 2 MG/ML SDV VIAL ONE ×2 (06:31→13:50)
[2018-12-28 07:06] LABS: ALBUMIN 2.9 g/dl (3.4-5.0); ALK PHOS 106 U/L (45-117); ANION GAP 6 MMOL/L (8-16); BILIRUBIN,TOTAL 0.4 mg/dL (0.2-1); BLOOD UREA NITROGEN 12.3 mg/dL (7-18); CALCIUM 8.8 mg/dL (8.5-10.1); CHLORIDE 109 mmol/L (98-107); CO2 25 mmol/L (21-32); CREATININE 1.1 mg/dL (0.55-1.3); GLUCOSE,RANDOM 110 mg/dL (74-106); POTASSIUM 4.7 mmol/L (3.5-5.1); SGOT/AST 14 U/L (15-37); SGPT/ALT 14 U/L (13-61); SODIUM 140 mmol/L (136-145); TOT PROT 6.3 g/dl (6.4-8.2)
--- NOTE | 2018-12-28 07:32 | PDOC ---
*Physical Exam - Vital Signs Last Vital Signs Temp Pulse Resp BP Pulse Ox 97.6 F 70 18 129/69 100 12/28/18 02:42 12/28/18 02:42 12/28/18 02:42 12/28/18 02:42 12/28/18 02:42 ED Treatment Course - LABORATORY CBC & Chemistry Diagram: 12/28/18 05:24 12/28/18 05:24 - ADDITIONAL ORDERS Additional order review: Laboratory Results 12/28/18 12/28/18 12/28/18 05:24 05:24 05:24 PT with INR 13.90 H INR 1.18 H Sodium Potassium Chloride Carbon Dioxide Anion Gap BUN Creatinine Est GFR (CKD-EPI)AfAm Est GFR (CKD-EPI)NonAf Random Glucose Lactic Acid Calcium Total Bilirubin AST ALT Alkaline Phosphatase Troponin I Cancelled Total Protein Albumin Blood Type B POSITIVE Antibody Screen Negative 12/28/18 12/28/18 05:24 05:24 PT with INR INR Sodium 140 Potassium 4.7 Chloride 109 H Carbon Dioxide 25 Anion Gap 6 L BUN 12.3 Creatinine 1.1 Est GFR (CKD-EPI)AfAm 88.98 Est GFR (CKD-EPI)NonAf 76.77 Random Glucose 110 H Lactic Acid 1.0 Calcium 8.8 Total Bilirubin 0.4 AST 14 L ALT 14 Alkaline Phosphatase 106 Troponin I < 0.02 Total Protein 6.3 L Albumin 2.9 L Blood Type Antibody Screen 12/28/18 05:24 RBC 3.70 L MCV 82.1 MCHC 33.1 RDW 14.8 MPV 7.4 L Neutrophils % 77.3 Lymphocytes % 12.2 D Monocytes % 9.0 Eosinophils % 0.5 Basophils % 1.0 - Medications Given in the ED: ED Medications Discontinued Medications Generic Name Dose Route Start Last Admin Trade Name Freq PRN Reason Stop Dose Admin Diphtheria/Tetanus/Acell Pertussis 0.5 ml 12/28/18 03:26 12/28/18 05:16 Boostrix - IM 12/28/18 03:27 0.5 ml .ONCE ONE Administration Sodium Chloride 1,000 mls @ 1,000 mls/hr 12/28/18 02:55 12/28/18 04:07 Normal Saline - IV 12/28/18 03:54 1,000 mls/hr ASDIR STA Administration Lorazepam 2 mg 12/28/18 06:27 12/28/18 06:35 Ativan Injection - IVPUSH 12/28/18 06:28 2 mg ONCE ONE Administration Medical Decision Making - Medical Decision Making 53yo M with PMH of Colon Ca s/p resection 2w ago, Seizure d/o, BIBA for seizure. Luan esqueda was called at 6am for unilateral weakness Per patient's at the bedside, she states patient has been compliant on keppra at home 12/28/18 07:32 On my assessment, patient without acute change in neurologic status. He will open eyes to sternal rub, but he is not speaking. I also appreciate the right sided weakness. Differential includes ischemic stroke vs. Víctor's paralysis vs. status epilepticus vs. brain metastasis from known colon CA CT head negative Page to neurology [phone] 12/28/18 09:[address] Jack who recommended Keppra loading and MRI brain w/o contrast. Plan for admission. Keppra ordered 12/28/18 09:[address] April Suggs who accepted patient for admission under Dr. Unger Patient had another seizure while in the ED about twenty minutes prior that stopped on its own 12/28/18 12:25 UTox positive for opiates (med list includes percocet), marijuana, and cocaine Discharge - Discharge Information Problems reviewed: Yes Clinical Impression/Diagnosis: Seizure, Unilateral weakness Condition: Guarded - Admission Yes - Follow up/Referral - Patient Discharge Instructions - Post Discharge Activity
[2018-12-28] MEDS ORDERED: levETIRAcetam 500 MG/5 ML INJECTION VIAL IVPB ONE ×2 (09:27→10:04)
--- NOTE | 2018-12-28 12:28 | HP ---
CHIEF COMPLAINT: Seizure PCP: Dr. Harrison HISTORY OF PRESENT ILLNESS: 53 y/o M with PMHx of Seizure disorder (previously noncompliant with meds), Depression, Polysubstance use disorder (Cocaine, Marijuana, EtOH), Diverticulitis, Colon Ca (s/p recent resection at [facility]; Previously tx with chemotherapy at [facility]) presents after a seizure with right sided weakness. During my interview patient was lethargic and somnolent, thus the majority of the HPI was provided by the at bedside. Patient recently visited the ED on 12/03 for a witnessed seizure (Head imaging was negative and treated with loading dose Keppra); CTAP NonContrast found Acute sigmoid diverticulitis with localized microperforation and ?intramural abscess for patient was treated with ABx and subsequent transfer to [facility] ColoRectal Sx. Patient's mentions that patient was at [facility] on 12/03-12/19 during which he underwent surgical resection. Since discharge, is adamant that the patient has been compliant with his AEDs. Patient again visited [facility] on for abdominal pain subjective fevers, diarrhea (as per EMR); After the CTAP with IV Contrast, patient left AMA for domestic reasons and was started on ABx. Today patient presents after a witnessed seizure. He was visiting with his sister when suddenly he had sudden onset convulsions; Denies hitting his head, tongue biting, loss of bowel/bladder control. Patient seized for approx. 2.5 mins as per and was drowsy and confused after regaining consciousness. mentions that patient was speaking at that time. endorses medication compliance but patient does not routinely follow up with neurology. also mentions that patient has not been able to sleep x 2 days due to abdominal pain. Additionally she mentions complaints of SOB. During his ED visit on 12/03, patient reported have 2 seizures monthly for the past 1 year (as per EMR). ER course was notable for: (1) (2) (3) Recent Travel: Denies PAST MEDICAL HISTORY: As above PAST SURGICAL HISTORY: Recent Colon resection Social History: Smoking: unable to quantify but endorses use Alcohol: denies Drugs: denies Allergies tomato Allergy (Mild, Verified 12/27/18 08:32) heart burn No Known Drug Allergies Allergy (Verified 12/27/18 08:32) red meat Allergy (Mild, Uncoded 12/27/18 08:32) stomach ache HOME MEDICATIONS: Home Medications Medication Instructions Recorded Enoxaparin [Lovenox -] 40 mg PO DAILY 12/28/18 Ibuprofen 600 mg PO Q6H 12/28/18 Oxycodone HCl/Acetaminophen 1 tab PO Q6H 12/28/18 [Percocet 5-325 mg Tablet] levETIRAcetam [Keppra -] 500 mg PO BID 12/28/18 REVIEW OF SYSTEMS Unable to perform as patient somnolent and lethargic PHYSICAL EXAMINATION Vital Signs - 24 hr 12/28/18 12/28/18 12/28/18 02:42 07:05 07:40 Temperature 97.6 F 98.0 F Pulse Rate 70 Pulse Rate [ 66 Apical] Respiratory 18 18 Rate Blood Pressure 129/69 Blood Pressure 117/70 [Left Arm] O2 Sat by Pulse 100 98 97 Oximetry (%) 12/28/18 12:08 Temperature 98.0 F Pulse Rate Pulse Rate [ 84 Apical] Respiratory 20 Rate Blood Pressure Blood Pressure 120/77 [Left Arm] O2 Sat by Pulse 100 Oximetry (%) GENERAL: Lethargic, somnolent HEAD: NCAT ENT: Moist mucous membranes. LUNGS: Diminished breath sounds at the bases. No wheezes, no crackles. HEART: Regular rate and rhythm, normal S1 and S2 without murmur ABDOMEN: Soft, nontender, not distended, + bowel sounds, Midline healing surgical scar CDI EXTREMITIES: No peripheral edema. NEUROLOGICAL: Lethargic, somnolent, not moving right side SKIN: Warm, dry Laboratory Results - last 24 hr 12/28/18 12/28/18 12/28/18 05:24 05:24 05:24 WBC 9.9 RBC 3.70 L Hgb 10.0 L Hct 30.4 L D MCV 82.1 MCH 27.1 MCHC 33.1 RDW 14.8 Plt Count 258 D MPV 7.4 L Absolute Neuts (auto) 7.7 Neutrophils % 77.3 Lymphocytes % 12.2 D Monocytes % 9.0 Eosinophils % 0.5 Basophils % 1.0 Nucleated RBC % 0 PT with INR INR Sodium 140 Potassium 4.7 Chloride 109 H Carbon Dioxide 25 Anion Gap 6 L BUN 12.3 Creatinine 1.1 Est GFR (CKD-EPI)AfAm 88.98 Est GFR (CKD-EPI)NonAf 76.77 Random Glucose 110 H Lactic Acid 1.0 Calcium 8.8 Total Bilirubin 0.4 AST 14 L ALT 14 Alkaline Phosphatase 106 Troponin I < 0.02 Total Protein 6.3 L Albumin 2.9 L Blood Type Antibody Screen 12/28/18 12/28/18 12/28/18 05:24 05:24 05:24 WBC RBC Hgb Hct MCV MCH MCHC RDW Plt Count MPV Absolute Neuts (auto) Neutrophils % Lymphocytes % Monocytes % Eosinophils % Basophils % Nucleated RBC % PT with INR 13.90 H INR 1.18 H Sodium Potassium Chloride Carbon Dioxide Anion Gap BUN Creatinine Est GFR (CKD-EPI)AfAm Est GFR (CKD-EPI)NonAf Random Glucose Lactic Acid Calcium Total Bilirubin AST ALT Alkaline Phosphatase Troponin I Cancelled Total Protein Albumin Blood Type B POSITIVE Antibody Screen Negative IMAGING: -Head CT Noncon: No evidence of acute intracranial hemorrhage, edema, midline shift, mass effect, or skull fracture. There is no CT evidence of acute territorial infarction. -CT C-Spine Noncon: No evidence of acute fracture, compression deformities, subluxation, prevertebral soft tissue swelling. -CXR: A single AP view of the chest is been submitted. Since 12/27/2018, there is slight increase in central markings but the mediastinum is not widened, the angles are sharp and the bones and soft tissues are intact. There are some degenerative changes. Correlation recommended. -EKG: Sinus Rhythm, VR 67, QTc 424 ASSESSMENT/PLAN: 53 y/o M with PMHx of Seizure disorder (previously noncompliant with meds), Depression, Polysubstance use disorder (Cocaine, Marijuana, EtOH), Diverticulitis, Colon Ca (s/p recent resection at [facility]; Previously tx with chemotherapy at [facility]) presents after a seizure with right sided weakness. #Right sided weakness + Lethragy s/p Fall -After multiple recent serizures likely due Todds paralysis, however must r/o TIA/CVA, possibly Cocaine induced -Afebrile, VSS, without lactic acidosis or leukocytosis -Imaging and Labwork noted above -Given Lorazepan and levetiracetam in ED -ASA 325mg nowl 81mg daily after -Atorvastatin 40mg HS -Neurology (Dr. Jack) consulted, further AEDs as per Neuro rec's -Check TSH. Lipid panel, Utox, Echo, Carotid doppler, Brain MRI/MRA -Keep HOB Elevated, maintain bedrest -Neurochecks -Speech and swallow, Physical therapy eval -Seizure/Fall/Dysphagia precautions -Will Obtain records from [facility] for recent dc; Unclear why patient is on Lovenox as denies any hx of DVT/PE #Hx of Polysubstance use disorder (Cocaine, Marijuana, EtOH) -UTox positive for opiates (patient takes percocet at home), Marijuana, Cocaine -Will Avoid BB given Cocaine + -Currently lethargic and somnolent, Continue to monitor for withdrawal; Will consider benzo's if deemed clinically necessary #Depression -Stable, Not on Meds, Monitor #Colon Ca (s/p recent resection at [facility]; Previously tx with chemotherapy at [facility]) -Stable, Will obtain record from [facility] #Anemia -in the setting of recent Colon resection -will consider checking Iron studies #FEN -NS @ 100 -Replete lytes PRN -NPO #PPx -DVT: Lovenox Dispo: Admit to Tele Visit type - Emergency Visit Emergency Visit: Yes ED Registration Date: 12/28/18 Care time: The patient presented to the Emergency Department on the above date and was hospitalized for further evaluation of their emergent condition. - New Patient This patient is new to me today: Yes Date on this admission: 12/28/18 - Critical Care Critical Care patient: No ATTENDING PHYSICIAN STATEMENT I saw and evaluated the patient. I reviewed the resident's note and discussed the case with the resident. I agree with the resident's findings and plan as documented. SUBJECTIVE: OBJECTIVE: ASSESSMENT AND PLAN:
--- NOTE | 2018-12-28 12:33 | PDOC ---
*Physical Exam - Vital Signs Last Vital Signs Temp Pulse Resp BP Pulse Ox 98.0 F 74 18 118/93 100 12/28/18 12:08 12/28/18 12:21 12/28/18 12:21 12/28/18 12:21 12/28/18 12:21 ED Treatment Course - LABORATORY CBC & Chemistry Diagram: 12/28/18 05:24 12/28/18 05:24 - ADDITIONAL ORDERS Additional order review: Laboratory Results 12/28/18 12/28/18 12/28/18 05:24 05:24 05:24 PT with INR 13.90 H INR 1.18 H Sodium Potassium Chloride Carbon Dioxide Anion Gap BUN Creatinine Est GFR (CKD-EPI)AfAm Est GFR (CKD-EPI)NonAf Random Glucose Lactic Acid Calcium Total Bilirubin AST ALT Alkaline Phosphatase Troponin I Cancelled Total Protein Albumin Blood Type B POSITIVE Antibody Screen Negative 12/28/18 12/28/18 05:24 05:24 PT with INR INR Sodium 140 Potassium 4.7 Chloride 109 H Carbon Dioxide 25 Anion Gap 6 L BUN 12.3 Creatinine 1.1 Est GFR (CKD-EPI)AfAm 88.98 Est GFR (CKD-EPI)NonAf 76.77 Random Glucose 110 H Lactic Acid 1.0 Calcium 8.8 Total Bilirubin 0.4 AST 14 L ALT 14 Alkaline Phosphatase 106 Troponin I < 0.02 Total Protein 6.3 L Albumin 2.9 L Blood Type Antibody Screen 12/28/18 05:24 RBC 3.70 L MCV 82.1 MCHC 33.1 RDW 14.8 MPV 7.4 L Neutrophils % 77.3 Lymphocytes % 12.2 D Monocytes % 9.0 Eosinophils % 0.5 Basophils % 1.0 - Medications Given in the ED: ED Medications Discontinued Medications Generic Name Dose Route Start Last Admin Trade Name Freq PRN Reason Stop Dose Admin Diphtheria/Tetanus/Acell Pertussis 0.5 ml 12/28/18 03:26 12/28/18 05:16 Boostrix - IM 12/28/18 03:27 0.5 ml .ONCE ONE Administration Sodium Chloride 1,000 mls @ 1,000 mls/hr 12/28/18 02:55 12/28/18 04:07 Normal Saline - IV 12/28/18 03:54 1,000 mls/hr ASDIR STA Administration Levetiracetam 1,000 mg 12/28/18 09:27 12/28/18 10:11 Keppra Injection - IVPB 12/28/18 09:28 1,000 mg ONCE ONE Administration Lorazepam 2 mg 12/28/18 06:27 12/28/18 06:35 Ativan Injection - IVPUSH 12/28/18 06:28 2 mg ONCE ONE Administration Medical Decision Making - Medical Decision Making 12/28/18 12:32 pt had a witnessed tonic clonic sz - i was called to bedside and sz had stopped. pt is posictal, somnolent, not moving his R side (consistent with his presentation during signou) ct hed neg will admit for further mangement and neuro cnsultatoin - ddx - todds paralysis, cva, brain mets Discharge - Discharge Information Problems reviewed: Yes Clinical Impression/Diagnosis: Seizure, Unilateral weakness Condition: Guarded Disposition: TRANSFER ACUTE CARE/OTHER HOSP - Admission No - Follow up/Referral - Patient Discharge Instructions - Post Discharge Activity
--- NOTE | 2018-12-28 12:36 | PN ---
Teaching Attending Note Name of Resident: April Suggs ATTENDING PHYSICIAN STATEMENT I saw and evaluated the patient. I reviewed the resident's note and discussed the case with the resident. I agree with the resident's findings and plan as documented. SUBJECTIVE: Unable to participate in medical interview, non-verbal at this time. OBJECTIVE: Afebile Hemodynamically Stable. Drowsy but rousable. Unable to communicate verbally at this time. Last Vital Signs Temp Pulse Resp BP Pulse Ox 98.0 F 74 18 118/93 100 12/28/18 12:08 12/28/18 12:21 12/28/18 12:21 12/28/18 12:21 12/28/18 12:21 HEENT - R forehead/eyebrow lac s/p dermabond. CHRISTEL. EOMI. Heart - S1, S2, RRR Lungs - clear to auscultation Abdomen - soft, non-tender. Bowel Sounds normal Extremities - No edema, no calf tenderness Neuro - Lethargic. Moving LUE/LLE. Unable to move R side, apparent R side neglect, non-verbal. Laboratory Results - last 24 hr 12/28/18 12/28/18 12/28/18 05:24 05:24 05:24 WBC 9.9 RBC 3.70 L Hgb 10.0 L Hct 30.4 L D MCV 82.1 MCH 27.1 MCHC 33.1 RDW 14.8 Plt Count 258 D MPV 7.4 L Absolute Neuts (auto) 7.7 Neutrophils % 77.3 Lymphocytes % 12.2 D Monocytes % 9.0 Eosinophils % 0.5 Basophils % 1.0 Nucleated RBC % 0 PT with INR INR Sodium 140 Potassium 4.7 Chloride 109 H Carbon Dioxide 25 Anion Gap 6 L BUN 12.3 Creatinine 1.1 Est GFR (CKD-EPI)AfAm 88.98 Est GFR (CKD-EPI)NonAf 76.77 Random Glucose 110 H Lactic Acid 1.0 Calcium 8.8 Total Bilirubin 0.4 AST 14 L ALT 14 Alkaline Phosphatase 106 Troponin I < 0.02 Total Protein 6.3 L Albumin 2.9 L Blood Type Antibody Screen 12/28/18 12/28/18 12/28/18 05:24 05:24 05:24 WBC RBC Hgb Hct MCV MCH MCHC RDW Plt Count MPV Absolute Neuts (auto) Neutrophils % Lymphocytes % Monocytes % Eosinophils % Basophils % Nucleated RBC % PT with INR 13.90 H INR 1.18 H Sodium Potassium Chloride Carbon Dioxide Anion Gap BUN Creatinine Est GFR (CKD-EPI)AfAm Est GFR (CKD-EPI)NonAf Random Glucose Lactic Acid Calcium Total Bilirubin AST ALT Alkaline Phosphatase Troponin I Cancelled Total Protein Albumin Blood Type B POSITIVE Antibody Screen Negative Home Medications Medication Instructions Recorded Lansoprazole [Prevacid -] 30 mg PO DAILY #30 cap.sr.24h 12/04/15 Mirtazapine [Remeron -] 15 mg PO HS #30 tablet 05/04/18 traZODone HCL [Desyrel -] 100 mg PO HS #30 tablet 05/04/18 Ciprofloxacin HCl [Cipro] 500 mg PO BID #20 tablet 12/27/18 Ciprofloxacin [Cipro (Restricted 500 mg PO Q12H #20 tablet 12/27/18 To Id)] metroNIDAZOLE [Flagyl -] 500 mg PO TID #30 tablet 12/27/18 metroNIDAZOLE [Flagyl -] 500 mg PO TID #30 tablet 12/27/18 ASSESSMENT AND PLAN: 53 year old male with history of Seizure Disorder (previously noncompliant with medications), Polysubstance Abuse (Cocaine, Marijuana, Alcohol), Diverticulosis , Colon Ca (s/p recent resection at [facility] s/p CTX at [place]) presents after a seizure, subsequent fall and HI with new right sided weakness. 1. Seizure with R-sided weakness ?post-ictal Víctor's paralysis versus new onset CVA CT Head - No evidence of acute ICH, edema, midline shift, mass effect, or skull fracture. No acute infarct. ECG - SR, rate 67, QTc 424 Utox cocaine positive MRI/MRA Head, Echo, Carotid Duplex requested. Neuro-observations Telemetry Loaded with Keppra Empirically loaded with Aspirin and Started on Statin. Neurology consult. Ativan PRN NPO PT/ST Fasting Lipid panel in AM. 2. Fall with HI CT Brain - no significant acute intracraial findings. CT C-Spine: No evidence of acute fracture/compression deformities/subluxation/ soft tissue swelling. 3. Hx of Polysubstance Abuse (Cocaine, Marijuana, Alcohol) denies drug use. Once patient more awake, will correctional counselor/case manager. 4. Colon Ca (s/p resection, s/p CTx) - Stable. Records from [facility] requested. DVT Px - Lovenox SQ
[2018-12-28 12:58] LABS: HYALINE CASTS 9 /lpf (0-8); URINE APPEARANCE CLOUDY; URINE BACTERIA 0.2 /hpf (NEGATIVE); URINE BILIRUBIN NEGATIVE (NEGATIVE); URINE COLOR YELLOW; URINE GLUCOSE (UA) NEGATIVE (NEGATIVE); URINE KETONE NEGATIVE (NEGATIVE); URINE LEUK ESTERASE NEGATIVE (NEGATIVE); URINE NITRITE NEGATIVE (NEGATIVE); URINE PROTEIN 1+ (NEGATIVE); URINE RBC 2 /hpf (0-4); URINE UROBILINOGEN 0.2 mg/dL (0.2-1.0); URINE WBC 1 /hpf (0-5)
[2018-12-28 13:07] LABS: METHADONE, UR NEGATIVE ng/ml (CUTOFF=300); PHENCYCLIDINE,URINE NEGATIVE ng/ml (CUTOFF=25); URINE AMPHETAMINES NEGATIVE ng/ml (CUTOFF=500); URINE BARBITURATES NEGATIVE ng/ml (CUTOFF=200); URINE BENZODIAZEPINES NEGATIVE ng/ml (CUTOFF=200)
[2018-12-28 13:10] LABS: COCAINE, UR POSITIVE ng/ml (CUTOFF=300); OPIATES, URI POSITIVE ng/ml (CUTOFF=300)
[2018-12-28] MEDS ORDERED: ASPIRIN 325 MG ENTERIC COATED TABLET (FP) PO ONE (13:15)
[2018-12-28] MEDS ORDERED: LORazepam 2 MG/ML SDV VIAL IVPUSH ONE (13:27)
[2018-12-28] MEDS ORDERED: ENOXAPARIN NA (PORCINE) 40 MG/0.4 ML DISP.SYRIN SQ SCH (13:30)
[2018-12-28] MEDS ORDERED: SODIUM CHLORIDE 1,000 ML IV SCH (13:30)
[2018-12-28] MEDS ORDERED: ASPIRIN 325 MG ENTERIC COATED TABLET (FP) ONE (13:50)
[2018-12-28] MEDS ORDERED: ENOXAPARIN NA (PORCINE) 40 MG/0.4 ML DISP.SYRIN SQ ONE (13:51)
--- NOTE | 2018-12-28 14:00 | EKG ---
Test Reason : Blood Pressure : / mmHG Vent. Rate : 070 BPM Atrial Rate : 070 BPM P-R Int : 134 ms QRS Dur : 098 ms QT Int : 400 ms P-R-T Axes : 047 055 048 degrees QTc Int : 432 ms NORMAL SINUS RHYTHM WITH SINUS ARRHYTHMIA NORMAL ECG WHEN COMPARED WITH ECG OF 27-DEC-2018 09:21, NO SIGNIFICANT CHANGE WAS FOUND Confirmed by MIKE MAYES MD ([id number]) on 12/28/2018 1:59:57 PM Referred By: Confirmed By:MIKE MAYES MD
[2018-12-28] MEDS ORDERED: ATORVASTATIN CA 40 MG TABLET (FP) PO SCH (22:00)
--- NOTE | 2018-12-29 | CON.NEURO ---
Consult Consult Specialty:: NEUROLOGY-MONET [facility] - History of Present Illness History of Present Illness: 53 y/o M with PMHx of Seizure disorder (previously noncompliant with meds), Depression, Polysubstance use disorder (Cocaine, Marijuana, EtOH), Diverticulitis, Colon Ca (s/p recent resection at [facility]; Previously tx with chemotherapy at [place]) presents after a seizure with right sided weakness. During my interview patient was lethargic and somnolent, thus the majority of the HPI was provided by the at bedside. Patient recently visited the ED on 12/03 for a witnessed seizure (Head imaging was negative and treated with loading dose Keppra); CTAP NonContrast found Acute sigmoid diverticulitis with localized microperforation and ?intramural abscess for patient was treated with ABx and subsequent transfer to [facility] ColoRectal Sx. Patient's mentions that patient was at [facility] on 12/03-12/19 during which he underwent surgical resection. Since discharge, is adamant that the patient has been compliant with his AEDs. Patient again visited [facility] on for abdominal pain subjective fevers, diarrhea (as per EMR); After the CTAP with IV Contrast, patient left AMA for domestic reasons and was started on ABx. Today patient presents after a witnessed seizure. He was visiting with his sister when suddenly he had sudden onset convulsions; Denies hitting his head, tongue biting, loss of bowel/bladder control. Patient seized for approx. 2.5 mins as per and was drowsy and confused after regaining consciousness. mentions that patient was speaking at that time. endorses medication compliance but patient does not routinely follow up with neurology. also mentions that patient has not been able to sleep x 2 days due to abdominal pain. Additionally she mentions complaints of SOB. During his ED visit on 12/03, patient reported have 2 seizures monthly for the past 1 year (as per EMR). Head CT Noncon: No evidence of acute intracranial hemorrhage, edema, midline shift, mass effect, or skull fracture. There is no CT evidence of acute territorial infarction. -CT C-Spine Noncon: No evidence of acute fracture, compression deformities, subluxation, prevertebral soft tissue swelling. -CXR: A single AP view of the chest is been submitted. Since 12/27/2018, there is slight increase in central markings but the mediastinum is not widened, the angles are sharp and the bones and soft tissues are intact. There are some degenerative changes. Correlation recommended. -EKG: Sinus Rhythm, VR 67, QTc 424 he is non-verbal, unable to relate hx. crotid ultrasound reported with left ICA bifurcation 60-79% soft plaque - Past Medical History Gastrointestinal: Yes: Diverticulitis (Diverticulitis last year.) Hepatobiliary: Yes: Other Additional Medical History: h/O substance abuse, marijuana, and alcohol, in rehab at [facility]. - Alcohol/Substance Use Hx Alcohol Use: Yes (Margy) - Smoking History Smoking history: Unknown if ever smoked Have you smoked in the past 12 months: Yes Aproximately how many cigarettes per day: 3 Home Medications - Allergies Allergies/Adverse Reactions: Allergies Allergy/AdvReac Type Severity Reaction Status Date / Time tomato Allergy Mild Verified 12/27/18 08:32 No Known Drug Allergies Allergy Verified 12/27/18 08:32 red meat Allergy Mild Uncoded 12/27/18 08:32 - Home Medications Home Medications: Ambulatory Orders Enoxaparin [Lovenox -] 40 mg PO DAILY 12/28/18 Ibuprofen 600 mg PO Q6H 12/28/18 Oxycodone HCl/Acetaminophen [Percocet 5-325 mg Tablet] 1 tab PO Q6H 12/28/18 levETIRAcetam [Keppra -] 500 mg PO BID 12/28/18 Physical Exam-Neuro Vital Signs: Vital Signs Temperature 97.9 F 12/28/18 20:05 Pulse Rate 68 12/28/18 21:00 Respiratory Rate 18 12/28/18 21:00 Blood Pressure 130/64 12/28/18 21:00 O2 Sat by Pulse Oximetry (%) 100 12/28/18 17:35 Labs: CBC, BMP 12/28/18 05:24 12/28/18 05:24 INR, PTT INR 1.18 (0.83-1.09) H 12/28/18 05:24 - Neuro Exam Level Of Consciousness: Yes: Stuporous Eyes: Yes: CHRISTEL, Right Hemianopsia (?? right homonymous hemianopsia to threat) Speech: Other (non-verbal, mute) Mini Mental Exam: non-verbal, not testable, follows no commands, agitated with non-purposeful left arm/leg movements Cranial Nerves II-XII Intact: Yes (slight right cent. facial) DTR's: 1+ Right Brachioradialis, 1+ Left Achilles, 1+ Right Achilles, 2+ Left Bicep, 2+ Left Tricep, 2+ Left Brachioradialis Babinski: Present (right) Response to light touch: Abnormal (diminished pain RUE/RLE, unable to test brest of modalities) Motor Strength: 3/5: Right Arm, Right Leg, 5/5: Left Arm, Left Leg Gait: Deferred Assessment/Plan Pt. with sz. right hemiparesis, global aphasia left carotid bifurcation soft plaque. Need to r/o left cortical ischemic event given soft carotid plaque left carotid bifurcation, less likely mets to left . Suggest: CT head/ CTA head/neck now, if mid/large vessel occlusion pt. will be a candidate for thrombectomy(tx. to [facility] for this).d/w housestaff.
[2018-12-29] MEDS ORDERED: LORazepam 2 MG/ML SDV VIAL IVPUSH ONE (01:12)
[2018-12-29] MEDS ORDERED: LORazepam 2 MG/ML SDV VIAL ONE (01:16)
[2018-12-29 02:47] VITALS: BP 117/82; PULSE 81; TEMP 98.6
--- NOTE | 2018-12-29 05:17 | PN ---
Progress Note (short form) - Note Progress Note: Spoke with Dr. Jack, Neurology, on the floors. As per Dr. Jack the patient has right hemiparesis, right hemianopsia, 1+ reflexes on the left side, 2+ right sided reflexes. U/S shows a large left carotid soft plaque at the bifurcation. Concern for mid/large vessel occlusion. Recommended CT head and CTA head and neck. CT head and CTA head and neck orders placed. Patient immediately taken for CT scan. BUN/Creatinine levels within normal limits for contrast scan. Patient was agitated during scan, given 1mg of Ativan for sedation. 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 Moderate stenosis of the M1 segment of the left MCA with paucity of the distal M3. Near complete occlusion of the left distal common carotid artery, proximal left internal carotid artery and proximal left external carotid artery that is due to intraluminal thrombus. Contacted Dr. Jack, recommended to transfer patient to [facility] for possible thrombectomy. Contacted [facility] transfer service, Spoke with Dr. Donnelly, Neurology, accepted for transfer to [facility]. Further spoke with Dr. Conrad and Dr. Cardoza, regarding patient's case for possible thrombectomy. Told that as patient's last known well time was over 24 hours ago, patient is likely not a candidate for thrombectomy but given patient' s age and co-morbidities patient will be transferred to [facility] for evaluation for thrombectomy or other interventional options. Accepting Physician Dr. Rivera.
[2018-12-29] MEDS ORDERED: ASPIRIN COATED 81 MG TABLET.EC PO SCH (10:00)
== END 2018-12-29 05:10 | disposition short-term general hospital (02) | DRG 45 ==
LOC: JER 02:39 → JERBED 10:51 → J4W 18:56
DX: I63.232 Cerebral infarction due to unspecified occlusion or stenosis of left carotid arteries (principal); S01.111A Laceration without foreign body of right eyelid and periocular area, initial encounter; G81.91 Hemiplegia, unspecified affecting right dominant side; F14.10 Cocaine abuse, uncomplicated; F10.10 Alcohol abuse, uncomplicated; F12.10 Cannabis abuse, uncomplicated; F32.9 Major depressive disorder, single episode, unspecified; D64.9 Anemia, unspecified; R47.01 Aphasia; H53.47 Heteronymous bilateral field defects; C18.9 Malignant neoplasm of colon, unspecified; R56.9 Unspecified convulsions
CPT/HCPCS: 36415; 70450-TC; 70496-TC; 70498-TC; 71045-TC-FY; 72125-TC; 80053; 80177; 80307; 81003; 83605; 84484; 85025; 85610; 86850; 86900; 86901; 87086; 90715; 93005; 93010; 93880-TC; 99285-25; J7030